=== PATIENT | male | born 1945 ===

== ENCOUNTER 2017-02-14 08:15 | Inpatient (IN) | payer MEDICARE, OTHER ==
[2017-02-14] MEDS ORDERED: Sodium Chloride 0.9% 1,000 ML IV STA (09:19)
[2017-02-14] MEDS ORDERED: Sodium Chloride 0.9% 1,000 ML ONE (09:55)
[2017-02-14 09:57] LABS: BASO % 0.3 % (0.0-2.0); HEMATOCRIT 42.3 % (35.0-51.0); LYMPH # 0.5 K/uL (1.0-4.3); LYMPH % 4.7 % (20.0-40.0); MEAN CELL VOLUME 90.5 fL (80.0-94.0); MEAN CORPUSCULAR HEMOGLOBIN 30.9 pg (27.0-31.0); MEAN CORPUSCULAR HGB CONC 34.2 g/dL (33.0-37.0); MEAN PLATELET VOLUME 9.9 fL (7.2-11.7); MONO # 0.4 K/uL (0.0-0.8); MONO % 3.4 % (0.0-10.0); PLATELET COUNT 131 K/uL (130-400); RED CELL DISTRIBUTION WIDTH 13.7 % (11.5-14.5); WHITE BLOOD COUNT 11.3 K/uL (4.8-10.8)
[2017-02-14 09:58] LABS: CHLORIDE 89 mmol/L (98-107); SODIUM 129 mmol/L (132-148)
[2017-02-14 09:59] LABS: POTASSIUM 3.6 mmol/L (3.6-5.2)
--- NOTE | 2017-02-14 09:59 | RAD ---
PROCEDURE: CHEST RADIOGRAPH, 1 VIEW HISTORY: fever COMPARISON: None available. FINDINGS: LUNGS: Prominent confluent opacification in the right upper to mid lung zone concerning for infiltrate. Additional diffuse increased interstitial lung markings which may represent edema and or infiltrate. Correlation with lateral view may be helpful if clinically indicated. PLEURA: As above. CARDIOVASCULAR: Normal. OSSEOUS STRUCTURES: Degenerative changes in the spine and shoulders. VISUALIZED UPPER ABDOMEN: Normal. OTHER FINDINGS: None. IMPRESSION: Prominent confluent opacification in the right upper to mid lung zone concerning for infiltrate. Additional diffuse increased interstitial lung markings which may represent edema and or infiltrate. Correlation with lateral view may be helpful if clinically indicated.
[2017-02-14 10:00] LABS: AMYLASE 88 U/L (30-110); BILIRUBIN,TOTAL 1.1 mg/dL (0.2-1.3); CARBON DIOXIDE 26 mmol/L (22-30); GFR AFRICAN-AMERICAN > 60; INR 1.1
[2017-02-14 10:01] LABS: ALB/GLOB RATIO 1.1 (1.0-2.1); ALKALINE PHOSPHATASE 86 U/L (38-126); ALT/SGPT 67 U/L (21-72); AST/SGOT 131 U/L (17-59); BLOOD UREA NITROGEN 17 mg/dL (9-20); CALCIUM 8.5 mg/dl (8.6-10.4); GLUCOSE,RANDOM 316 mg/dL (75-110); TOTAL PROTEIN 7.4 g/dL (6.3-8.3)
[2017-02-14 10:08] LABS: VENOUS BLOOD GAS BASE EXCESS 2.7 mmol/L (0.0-2.0); VENOUS BLOOD GAS PCO2 44 mmHg (40-60); VENOUS BLOOD PH 7.41 (7.32-7.43)
[2017-02-14] MEDS ORDERED: Azithromycin 500 MG in Sodium Chloride 0.9% 250 ML IVPB STA (10:17)
[2017-02-14] MEDS ORDERED: cefTRIAXone IV 1 gm in Dextros 50 ML IVPB STA (10:17)
[2017-02-14 10:19] LABS: TOTAL CELLS COUNTED 100
[2017-02-14 10:20] LABS: NEUTROPHIL 75 % (50-75)
[2017-02-14] MEDS ORDERED: cefTRIAXone IV 1 gm in Dextros 50 ML IVPB ONE (10:35)
--- NOTE | 2017-02-14 10:35 | C.PDOC ---
History Of Present Illness 72 year old male with a history of DM, presents to the ED accompanied by his son who states the patient has had generalized weakness, upper back pain, chest soreness, productive cough, SOB and subjective fever for the past 4 days. 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 Abdominal pain, nausea, vomiting, diarrhea or any other complaints at this time. Time Seen by Provider: 02/14/17 08:57 Chief Complaint (Nursing): Flu-like Symptoms History Per: Patient, Family (Son) History/Exam Limitations: no limitations Onset/Duration Of Symptoms: Days Current Symptoms Are (Timing): Still Present Associated Symptoms: Fever. denies: Cough, Vomiting, Diarrhea Ear Symptoms: Bilateral: None Severity: Mild Past Medical History Reviewed: Historical Data, Nursing Documentation, Vital Signs Vital Signs: Last Vital Signs Temp 99 F 02/14/17 13:58 Pulse 79 02/14/17 13:58 Resp 20 02/14/17 13:58 BP 99/54 L 02/14/17 13:58 Pulse Ox 95 02/14/17 13:58 - Medical History PMH: Fractures (LEFT ANKLE WITH FIXATION) Family History: States: Unknown Family Hx - Social History Hx Alcohol Use: No (Former) Hx Substance Use: No (Denied) - Immunization History Hx Tetanus Toxoid Vaccination: No Hx Influenza Vaccination: Yes ("December 2016") Hx Pneumococcal Vaccination: No ("Unsure'') Review Of Systems Except As Marked, All Systems Reviewed And Found Negative. Constitutional: Positive for: Fever, Weakness, Other (+Decreased appetite). Negative for: Chills Cardiovascular: Positive for: Chest Pain. Negative for: Palpitations Respiratory: Negative for: Cough, Shortness of Breath Gastrointestinal: Negative for: Nausea, Vomiting, Abdominal Pain Genitourinary: Negative for: Incontinence Musculoskeletal: Positive for: Back Pain Neurological: Negative for: Weakness, Numbness Physical Exam - Physical Exam Appears: Non-toxic, No Acute Distress Skin: Normal Color, Warm, Dry, No Rash Head: Atraumatic, Normacephalic Eye(s): bilateral: Normal Inspection Oral Mucosa: Dry Neck: Supple Chest: Symmetrical, No Deformity Cardiovascular: Rhythm Regular, No Murmur Respiratory: No Accessory Muscle Use, Rales (+Rales to bilateral bases), No Rhonchi, No Wheezing Gastrointestinal/Abdominal: Soft, No Tenderness, No Distention, No Guarding, No Rebound Extremity: Normal ROM, No Pedal Edema, No Deformity Neurological/Psych: Oriented x3, Normal Speech, Normal Cognition ED Course And Treatment - Laboratory Results Result Diagrams: 02/14/17 09:44 02/14/17 09:44 ECG: Interpreted By Me, Viewed By Me ECG Rhythm: Sinus Rhythm Rate From EC O2 Sat by Pulse Oximetry: 95 (Room air) Pulse Ox Interpretation: Normal - Radiology CXR: Viewed By Me, Read By Radiologist CXR Interpretation: Yes: Other (Prominent confluent opacification in the right upper to mid lung zone concerning for infiltrate. Additional diffuse increased interstitial lung markings which may represent edema and or infiltrate. Correlation with lateral view may be helpful if clinically indicated.) - CT Scan/US CT Chest w/o contrast Other Rad Studies (CT/US): Read By Radiologist, Radiology Report Reviewed CT/US Interpretation: Accession No. : [id number]. Patient Name / ID : ROD KAYE / [id number]. Exam Date : 02/14/2017 11:52:42 ( Approved ). Study Comment : Sex / Age : M / [id number]. Creator : Stacy Roper MD. Dictator : Stacy Roper MD. Net Programmer : Warehouse Shipping Supervisor : Stacy Roper MD. Approver2 : Report Date : 02/14/2017 12:19:12. My Comment : . CT chest without IV contrast. Indication: right upper lobe infiltrate, patchy infiltrates. Technique: Contiguous axial images were obtained through the chest without intravenous contrast enhancement. Sagittal and coronal reconstructions were generated and reviewed. This CT exam was performed using 1 or more of the falling dose reduction techniques: Automated exposure control, adjustment of the MAA and/or kV according to patient size, and/or use of iterative reconstruction technique. . Radiation dose (DLP): 844.09 MGy-cm. Comparison: Chest x-ray performed 02/14/17. Findings: Visualized portions of the inferior thyroid gland appear unremarkable. The unenhanced mediastinal and hilar vascular structures appear grossly unremarkable. The heart appears within normal limits of size. Coronary artery calcifications. Prominent prevascular and mediastinal adenopathy measuring up to 12 mm in short axis ( right pretracheal lymph node); lack of IV contrast limits evaluation for adenopathy, in particular hilar adenopathy. Right upper lobe patchy consolidation compatible with pneumonia. No pleural effusion. No pneumothorax. Limited visualization of the noncontrast upper abdomen appears grossly unremarkable. . Degenerative changes of the spine. Impression: Extensive right upper lobe patchy consolidation compatible with pneumonia. Recommend follow-up upon completion of treatment for acute symptoms in order to ensure complete resolution. Prominent prevascular and mediastinal adenopathy measuring up to 12 mm in short axis (right pretracheal lymph node); lack of IV contrast limits evaluation for adenopathy, in particular hilar adenopathy. Progress Note: CT Chest w/o contrast, EKG, CXR, Blood work, Urinalysis, and Flu swab ordered and reviewed. Patient treated with Zithromax, Rocephine, and IV fluids. Case discussed with Dr. Fernandes who agreed with plan and admission. Disposition - Disposition Disposition: HOSPITALIZED Disposition Time: 10:35 Condition: FAIR - Clinical Impression Clinical Impression: Pneumonia, Diabetes mellitus - PA / TRAVEL DIRECTOR / Resident Statement MD/DO has reviewed & agrees with the documentation as recorded. - Scribe Statement The provider has reviewed the documentation as recorded by the Scribe Светлана Ko. All medical record entries made by the [place]ibkurt were at my direction and personally dictated by me. I have reviewed the chart and agree that the record accurately reflects my personal performance of the history, physical exam, medical decision making, and the department course for this patient. I have also personally directed, reviewed, and agree with the discharge instructions and disposition. Decision To Admit - Pt Status Changed To: Hospital Disposition Of: Inpatient - Admit Certification Admit to Inpatient:: After my assessment, the patient will require hospitalization for at least two midnights. This is because of the severity of symptoms shown, intensity of services needed, and/or the medical risk in this patient being treated as an outpatient. - InPatient: Physician Admission Certification: I certify that this patient requires 2 or more midnights of care for the following reason:: Patient with dayanna fever and RUL pneumonia will need more than 2 days of IV antibiotics. - . Bed Request Type: Regular Patient Diagnosis: Pneumonia, Diabetes mellitus
[2017-02-14] MEDS ORDERED: Azithromycin 500mg/250ML NS 500 MG/250 ML BAG IVPB ONE (11:07)
[2017-02-14 12:10] LABS: RBC URINE 5 /hpf (0-3); URINE BACTERIA OCC (<OCC); URINE BILIRUBIN NEGATIVE (NEGATIVE); URINE BLOOD 3+ (NEGATIVE); URINE COLOR Yellow (YELLOW); URINE GLUCOSE (UA) 3+ mg/dL (Normal); URINE KETONE TRACE mg/dL (NEGATIVE); URINE LEUKOCYTE ESTERASE NEG Leu/uL (Negative); URINE PROTEIN 2+ mg/dL (NEGATIVE); WBC URINE 9 /hpf (0-5)
--- NOTE | 2017-02-14 12:20 | CT ---
CT chest without IV contrast Indication: right upper lobe infiltrate, patchy infiltrates Technique: Contiguous axial images were obtained through the chest without intravenous contrast enhancement. Sagittal and coronal reconstructions were generated and reviewed. This CT exam was performed using 1 or more of the falling dose reduction techniques: Automated exposure control, adjustment of the MAA and/or kV according to patient size, and/or use of iterative reconstruction technique. Radiation dose (DLP): 844.09 MGy-cm. Comparison: Chest x-ray performed 02/14/17 Findings: Visualized portions of the inferior thyroid gland appear unremarkable. The unenhanced mediastinal and hilar vascular structures appear grossly unremarkable. The heart appears within normal limits of size. Coronary artery calcifications. Prominent prevascular and mediastinal adenopathy measuring up to 12 mm in short axis (right pretracheal lymph node); lack of IV contrast limits evaluation for adenopathy, in particular hilar adenopathy. Right upper lobe patchy consolidation compatible with pneumonia. No pleural effusion. No pneumothorax. Limited visualization of the noncontrast upper abdomen appears grossly unremarkable. Degenerative changes of the spine. Impression: Extensive right upper lobe patchy consolidation compatible with pneumonia. Recommend follow-up upon completion of treatment for acute symptoms in order to ensure complete resolution. Prominent prevascular and mediastinal adenopathy measuring up to 12 mm in short axis (right pretracheal lymph node); lack of IV contrast limits evaluation for adenopathy, in particular hilar adenopathy.
[2017-02-14] MEDS: Sodium Chloride 0.9% 1,000 ML IV SCH (13:20)
[2017-02-14] MEDS: (Novolin R) Insulin Human Regular 100 units/ml vial SC SCH ×2 (16:30→21:49)
--- NOTE | 2017-02-14 17:49 | CP.PCM.HP ---
History of Present Illness - History of Present Illness History of Present Illness: pt came in to er cough weeke fever chils and no apetite Present on Admission - Present on Admission Any Indicators Present on Admission: Yes Review of Systems - Review of Systems Systems not reviewed;Unavailable: Acuity of Condition - Constitutional Constitutional: Anorexia, Chills, Fatigue, Fever - EENT Eyes: As Per HPI Ears: As Per HPI Nose/Mouth/Throat: As Per HPI - Cardiovascular Cardiovascular: Dyspnea on Exertion - Respiratory Respiratory: Cough, Dyspnea on Exertion - Gastrointestinal Gastrointestinal: As Per HPI - Genitourinary Genitourinary: Urinary Frequency - Reproductive: Male Reproductive:Male: As Per HPI - Musculoskeletal Musculoskeletal: As Per HPI - Integumentary Integumentary: As Per HPI - Neurological Neurological: As Per HPI - Psychiatric Psychiatric: As Per HPI - Endocrine Endocrine: Polydipsia, Polyuria - Hematologic/Lymphatic Hematologic: As Per HPI Past Patient History - Past Medical History & Family History Past Medical History?: Yes - Past Social History Smoking Status: Former Smoker - ENDOCRINE/METABOLIC Hx Endocrine Disorders: Yes Hx Diabetes Mellitus Type 2: Yes - MUSCULOSKELETAL/RHEUMATOLOGICAL Hx Fractures: Yes (LEFT ANKLE WITH FIXATION) - PSYCHIATRIC Hx Substance Use: No (Denied) - SURGICAL HISTORY Hx Surgeries: Yes Hx Orthopedic Surgery: Yes - ANESTHESIA Hx Anesthesia: Yes Hx Anesthesia Reactions: No Meds Allergies/Adverse Reactions: Allergies Allergy/AdvReac Type Severity Reaction Status Date / Time No Known Allergies Allergy Unverified 02/14/17 08:26 Physical Exam - Constitutional Appears: In Acute Distress - Head Exam Head Exam: ATRAUMATIC - Eye Exam Eye Exam: Normal appearance Pupil Exam: NORMAL ACCOMODATION - ENT Exam ENT Exam: Mucous Membranes Dry - Neck Exam Neck exam: Positive for: Full Rom - Respiratory Exam Respiratory Exam: Accessory Muscle Use, Decreased Breath Sounds, Rales - Cardiovascular Exam Cardiovascular Exam: Tachycardia - GI/Abdominal Exam GI & Abdominal Exam: Normal Bowel Sounds - Rectal Exam Rectal Exam: NORMAL INSPECTION - Extremities Exam Extremities exam: Positive for: normal inspection - Back Exam Back exam: NORMAL INSPECTION Results - Vital Signs Recent Vital Signs: Last Vital Signs Temp 101.5 F H 02/14/17 15:30 Pulse 98 H 02/14/17 15:30 Resp 20 02/14/17 15:30 BP 126/72 02/14/17 15:30 Pulse Ox 95 02/14/17 16:14 - Labs Result Diagrams: 02/14/17 09:44 02/14/17 09:44 Labs: Laboratory Results - last 24 hr 02/14/17 02/14/17 11:46 17:02 POC Glucose (mg/dL) 242 H Urine Color Yellow Urine Clarity Hazy Urine pH 5.0 Ur Specific [place] 1.022 Urine Protein 2+ H Urine Glucose (UA) 3+ H Urine Ketones Trace Urine Blood 3+ H Urine Nitrate Negative Urine Bilirubin Negative Urine Urobilinogen 4.0 Ur Leukocyte Esterase Neg Urine WBC (Auto) 9 H Urine RBC (Auto) 5 H Ur Squamous Epith Cells < 1 Amorphous Sediment Occ H Urine Bacteria Occ H Assessment & Plan - Assessment and Plan (Free Text) Assessment: ac pnumonia ac uti dm Plan: as per orders - Date & Time Date: 02/14/17 Time: 17:51
[2017-02-15] MEDS: Sodium Chloride 0.9% 1,000 ML IV SCH ×2 (00:59→16:56)
[2017-02-15] MEDS: (Novolin R) Insulin Human Regular 100 units/ml vial SC SCH ×4 (08:25→23:52)
[2017-02-15 08:33] LABS: BASO % 0.1 % (0.0-2.0); HEMATOCRIT 35.6 % (35.0-51.0); LYMPH # 0.4 K/uL (1.0-4.3); LYMPH % 5.2 % (20.0-40.0); MEAN CELL VOLUME 90.8 fL (80.0-94.0); MEAN CORPUSCULAR HEMOGLOBIN 30.7 pg (27.0-31.0); MEAN CORPUSCULAR HGB CONC 33.8 g/dL (33.0-37.0); MEAN PLATELET VOLUME 10.3 fL (7.2-11.7); MONO # 0.2 K/uL (0.0-0.8); MONO % 2.7 % (0.0-10.0); PLATELET COUNT 132 K/uL (130-400); RED CELL DISTRIBUTION WIDTH 13.6 % (11.5-14.5); WHITE BLOOD COUNT 8.4 K/uL (4.8-10.8)
[2017-02-15 08:39] LABS: CHLORIDE 95 mmol/L (98-107); POTASSIUM 3.3 mmol/L (3.6-5.2); SODIUM 131 mmol/L (132-148)
[2017-02-15 08:41] LABS: ALB/GLOB RATIO 0.9 (1.0-2.1); AST/SGOT 89 U/L (17-59); BILIRUBIN,TOTAL 0.9 mg/dL (0.2-1.3); CARBON DIOXIDE 25 mmol/L (22-30); CHOLESTEROL 100 mg/dL (0-199); GFR AFRICAN-AMERICAN > 60; TOTAL PROTEIN 6.1 g/dL (6.3-8.3)
[2017-02-15 08:42] LABS: ALKALINE PHOSPHATASE 67 U/L (38-126); ALT/SGPT 61 U/L (21-72); BLOOD UREA NITROGEN 21 mg/dL (9-20); CALCIUM 7.7 mg/dl (8.6-10.4); GLUCOSE,RANDOM 173 mg/dL (75-110)
[2017-02-15 09:25] LABS: NEUTROPHIL 69 % (50-75); TOTAL CELLS COUNTED 100
--- NOTE | 2017-02-15 09:40 | CP.PCM.PN ---
Subjective - Date & Time of Evaluation Date of Evaluation: 02/15/17 Time of Evaluation: 09:38 - Subjective Subjective: feels beter still has fever c/o bloody urin Objective - Vital Signs/Intake and Output Vital Signs (last 24 hours): Temp Pulse Resp BP Pulse Ox 99 F 88 20 107/60 96 02/15/17 09:05 02/15/17 08:00 02/15/17 08:00 02/15/17 08:00 02/15/17 08:00 Intake and Output: 02/15/17 02/15/17 06:59 18:59 Intake Total 2940 Output Total 300 Balance 2640 - Medications Medications: Current Medications Acetaminophen (Tylenol 325mg Tab) 650 mg PO Q6H PRN PRN Reason: Fever >100.4 F Last Admin: 02/15/17 06:48 Dose: 650 mg Heparin Sodium (Porcine) (Heparin) 5,000 units SC Q12 [facility] Last Admin: 02/15/17 09:17 Dose: 5,000 units Sodium Chloride (Sodium Chloride 0.9%) 1,000 mls @ 80 mls/hr IV .[id number] [facility] Last Admin: 02/15/17 00:59 Dose: 80 mls/hr Azithromycin 500 mg/ Sodium (Chloride) 250 mls @ 166.667 mls/hr IVPB DAILY [facility] Last Admin: 02/15/17 09:19 Dose: 166.667 mls/hr Ceftriaxone Sodium (Rocephin Iv 1 Gm Duplex) 50 mls @ 100 mls/hr IVPB Q24H [facility] Insulin Human Regular (Novolin R) 0 unit SC ACHS DIALLO PRN Reason: Protocol Last Admin: 02/15/17 08:25 Dose: 3 unit Metformin HCl (Glucophage) 1,000 mg PO BID [facility] Last Admin: 02/15/17 09:17 Dose: 1,000 mg Pneumococcal Polyvalent Vaccine (Pneumovax 23 Vaccine) 0.5 ml IM .ONCE ONE Stop: 02/16/17 10:01 - Labs Labs: 02/15/17 08:17 02/15/17 08:17 PT 12.9 SECONDS (9.7-12.2) H 02/14/17 09:44 INR 1.1 02/14/17 09:44 APTT 44 SECONDS (21-34) H 02/14/17 09:44 - Constitutional Appears: Non-toxic - Head Exam Head Exam: NORMAL INSPECTION - Eye Exam Eye Exam: Normal appearance - ENT Exam ENT Exam: Normal Exam - Neck Exam Neck Exam: Full ROM - Respiratory Exam Respiratory Exam: Decreased Breath Sounds - Cardiovascular Exam Cardiovascular Exam: REGULAR RHYTHM - GI/Abdominal Exam GI & Abdominal Exam: Normal Bowel Sounds - Rectal Exam Rectal Exam: NORMAL INSPECTION - Exam External exam: NORMAL EXTERNAL EXAM - Extremities Exam Extremities Exam: Normal Inspection - Back Exam Back Exam: NORMAL INSPECTION - Neurological Exam Neurological Exam: Alert, Oriented x3 - Psychiatric Exam Psychiatric exam: Normal Affect - Skin Skin Exam: Intact Assessment and Plan - Assessment and Plan (Free Text) Assessment: ac pnumonia ac uti dm constipation hypokaleamia hypocalceamia Plan: as per orders
[2017-02-15] MEDS ORDERED: Azithromycin 500 MG in Sodium Chloride 0.9% 250 ML IVPB SCH (10:00)
[2017-02-15 11:04] LABS: FREE T4 1.15 ng/dL (0.78-2.19)
[2017-02-15 11:18] LABS: THYROID STIMULATING HORMONE 0.55 mIU/L (0.46-4.68)
[2017-02-15] MEDS: Calcium-Vit D 250 mg-125 Units Tab UD PO SCH (11:24)
[2017-02-15] MEDS: Potassium Chloride 20 mEq ER Tab PO SCH (11:24)
--- NOTE | 2017-02-15 11:28 | CARD ---
APPROVED REPORT EKG Measurement Heart [id number] MD [id number] [id number] <Conclusion> Normal sinus rhythm Normal ECG
[2017-02-15] MEDS ORDERED: cefTRIAXone IV 1 gm in Dextros 50 ML IVPB SCH (11:30)
--- NOTE | 2017-02-15 19:04 | CP.PCM.CON ---
History of Present Illness - History of Present Illness History of Present Illness: 72 year old male with a history of DM, presents to the ED accompanied by his son who states the patient has had generalized weakness, upper back pain, chest soreness, productive cough, SOB and subjective fever for the past 4 days. 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 Abdominal pain, nausea, vomiting, diarrhea or any other complaints at this time. poor historian bands HI PMH denied +DM appears depresseed IV rx ordered for pneumonia pending cultures Review of Systems - Constitutional Constitutional: Chills, Fatigue, Fever - EENT Eyes: absent: As Per HPI, Blind Spots, Blurred Vision, Change in Vision, Decreased Night Vision, Diplopia, Discharge, Dry Eye, Exophthalmos, Floaters, Irritation, Itchy Eyes, Loss of Peripheral Vision, Pain, Photophobia, Requires Corrective Lenses, Sees Flashes, Spots in Vision, Tunnel Vision, Other Visual Disturbances, Loss of Vision, Other Ears: absent: As Per HPI, Decreased Hearing, Ear Discharge, Ear Pain, Tinnitus, Abnormal Hearing, Disequilibrium, Dizziness, Other Nose/Mouth/Throat: absent: As Per HPI, Epistaxis, Nasal Congestion, Nasal Discharge, Nasal Obstruction, Nasal Trauma, Nose Pain, Post Nasal Drip, Sinus Pain, Sinus Pressure, Bleeding Gums, Change in Voice, Dental Pain, Dry Mouth, Dysphagia, Halitosis, Hoarsness, Lip Swelling, Mouth Lesions, Mouth Pain, Odynophagia, Sore Throat, Throat Swelling, Tongue Swelling, Facial Pain, Neck Pain, Neck Mass, Other - Cardiovascular Cardiovascular: absent: As Per HPI, Acrocyanosis, Chest Pain, Chest Pain at Rest , Chest Pain with Activity, Claudication, Diaphoresis, Dyspnea, Dyspnea on Exertion, Edema, Irregular Heart Rhythm, Pain Radiating to Arm/Neck/Jaw, Leg Edema, Leg Ulcers, Lightheadedness, Orthopnea, Palpitations, Paroxysmal Nocturnal Dyspnea, Pedal Edema, Radiating Pain, Rapid Heart Rate, Slow Heart Rate, Syncope, Other - Respiratory Respiratory: As Per HPI, Cough. absent: Hemoptysis - Gastrointestinal Gastrointestinal: absent: As Per HPI, Abdominal Pain, Belching, Bloating, Change in Bowel Habits, Change in Stool Character, Coffee Ground Emesis, Constipation, Cramping, Diarrhea, Dyspepsia, Dysphagia, Early Satiety, Excessive Flatus, Fecal Incontinence, Heartburn, Hematemesis, Hematochezia, Loose Stools, Melena, Nausea, Odynophagia, Temesmus, Vomiting, Other - Genitourinary Genitourinary: absent: As Per HPI, Change in Urinary Stream, Difficulty Urinating, Dysuria, Flank Pain, Hematuria, Pyuria, Nocturia, Urinary Incontinence, Urinary Frequency, Urinary Hesitance, Urinary Urgency, Voiding Freq/Small Amts, Freq UTI, Hx Renal/Bladder Calculi, Hx /Renal Surgery, Bladder Distension, Other - Musculoskeletal Musculoskeletal: absent: As Per HPI, Abnormal Gait, Arthralgias, Atrophy, Back Pain, Deformity, Joint Swelling, Limited Range of Motion, Loss of Height, Muscle Cramps, Muscle Weakness, Myalgias, Neck Pain, Numbness, Radiating Pain into Limb, Stiffness, Tingling, Other - Integumentary Integumentary: absent: As Per HPI, Acne, Alopecia, Bleeding Lesions, Change in Hair, Change in Nails, Change in Pigmentation, Changing Lesions, Dry Skin, Erythema, Furuncle, Hirsutism, Lesions, New Lesions, Non-Healing Lesions, Photosensitivity, Pruritus, Rash, Skin Pain, Skin Ulcer, Sores, Striae, Swelling , Unusual Bruising, Wounds, Jaundice, Other - Neurological Neurological: absent: As Per HPI, Abnormal Gait, Abnormal Hearing, Abnormal Movements, Abnormal Speech, Behavioral Changes, Burning Sensations, Confusion, Convulsions, Disequilibrium, Dizziness, Numbness, Focal Weakness, Frequent Falls , Headaches, Lack of Coordination, Loss of Vision, Memory Loss, Paresthesias, Radicular Pain, Restless Legs, Sensory Deficit, Syncope, Tingling, Tremor, Vertigo, Weakness, Other Visual Disturbances, Other - Psychiatric Psychiatric: absent: As Per HPI, Abnormal Sleep Pattern, Anhedonia, Anxiety, Auditory Hallucinations, Behavioral Changes, Change in Appetite, Change in Libido, Confusion, Depression, Difficulty Concentrating, Hallucinations, Homicidal Ideation, Hopelessness, Irritability, Memory Loss, Mood Swings, Panic Attacks, Paranoia, Suicidal Ideation, Visual Hallucinations, Tactile Hallucinations, Other - Endocrine Endocrine: absent: As Per HPI, Change in Body Appearance, Change in Libido, Cold Intolorance, Deepening of Voice, Excessive Sweating, Fatigue, Flushing, Heat Intolorance, Increase in Ring/Shoe/Hat Size, Palpitations, Polydipsia, Polyphagia, Polyuria, Other - Hematologic/Lymphatic Hematologic: absent: As Per HPI, Easy Bleeding, Easy Bruising, Lymphadenopathy, Other Past Patient History - Past Medical History & Family History Past Medical History?: Yes - Past Social History Smoking Status: Former Smoker - ENDOCRINE/METABOLIC Hx Diabetes Mellitus Type 2: Yes - MUSCULOSKELETAL/RHEUMATOLOGICAL Hx Fractures: Yes (LEFT ANKLE WITH FIXATION) - PSYCHIATRIC Hx Substance Use: No (Denied) - SURGICAL HISTORY Hx Surgeries: Yes Hx Orthopedic Surgery: Yes - ANESTHESIA Hx Anesthesia: Yes Hx Anesthesia Reactions: No Meds Allergies/Adverse Reactions: Allergies Allergy/AdvReac Type Severity Reaction Status Date / Time No Known Allergies Allergy Unverified 02/14/17 08:26 - Medications Medications: Current Medications Acetaminophen (Tylenol 325mg Tab) 650 mg PO Q6H PRN PRN Reason: Fever >100.4 F Last Admin: 02/15/17 16:52 Dose: 650 mg Calcium/Vitamin D (Oscal-D 250 Mg-125 Units Tab) 1 tab PO DAILY [facility] Last Admin: 02/15/17 11:24 Dose: 1 tab Heparin Sodium (Porcine) (Heparin) 5,000 units SC Q12 [facility] Last Admin: 02/15/17 09:17 Dose: 5,000 units Sodium Chloride (Sodium Chloride 0.9%) 1,000 mls @ 80 mls/hr IV .[id number] [facility] Last Admin: 02/15/17 16:56 Dose: 80 mls/hr Azithromycin 500 mg/ Sodium (Chloride) 250 mls @ 166.667 mls/hr IVPB DAILY [facility] Last Admin: 02/15/17 09:19 Dose: 166.667 mls/hr Ceftriaxone Sodium (Rocephin Iv 1 Gm Duplex) 50 mls @ 100 mls/hr IVPB Q24H [facility] Last Admin: 02/15/17 11:26 Dose: 100 mls/hr Insulin Human Regular (Novolin R) 0 unit SC ACHS [facility] PRN Reason: Protocol Last Admin: 02/15/17 16:55 Dose: Not Given Metformin HCl (Glucophage) 1,000 mg PO BID [facility] Last Admin: 02/15/17 17:00 Dose: 1,000 mg Pneumococcal Polyvalent Vaccine (Pneumovax 23 Vaccine) 0.5 ml IM .ONCE ONE Stop: 02/16/17 10:01 Potassium Chloride (K-Dur 20 Meq Er Tab) 20 meq PO DAILY [facility] Last Admin: 02/15/17 11:24 Dose: 20 meq Physical Exam - Constitutional Appears: Non-toxic, Cachectic, Chronically Ill - Head Exam Head Exam: ATRAUMATIC, NORMAL INSPECTION, NORMOCEPHALIC - Eye Exam Eye Exam: EOMI, PERRL. absent: Scleral icterus - ENT Exam ENT Exam: Mucous Membranes Dry, Normal External Ear Exam - Neck Exam Neck exam: Negative for: Lymphadenopathy, Thyromegaly - Respiratory Exam Respiratory Exam: Decreased Breath Sounds, Rhonchi - Cardiovascular Exam Cardiovascular Exam: REGULAR RHYTHM, +S1, +S2 - GI/Abdominal Exam GI & Abdominal Exam: Diminished Bowel Sounds, Soft. absent: Tenderness - Rectal Exam Rectal Exam: Deferred - Exam Exam: NORMAL INSPECTION - Extremities Exam Extremities exam: Positive for: pedal pulses present. Negative for: calf tenderness, pedal edema, tenderness - Back Exam Back exam: absent: CVA tenderness (L), CVA tenderness (R), paraspinal tenderness - Neurological Exam Neurological exam: Alert, CN II-XII Intact, Oriented x3, Reflexes Normal - Psychiatric Exam Psychiatric exam: Depressed - Skin Skin Exam: Dry, Intact Results - Vital Signs Recent Vital Signs: Last Vital Signs Temp 102.1 F H 02/15/17 16:52 Pulse 88 02/15/17 08:00 Resp 20 02/15/17 08:00 BP 107/60 02/15/17 08:00 Pulse Ox 96 02/15/17 08:00 - Labs Result Diagrams: 02/15/17 08:17 02/15/17 08:17 Labs: Laboratory Results - last 24 hr 02/14/17 02/15/17 02/15/17 21:16 07:19 08:17 WBC 8.4 RBC 3.93 L Hgb 12.0 D Hct 35.6 MCV 90.8 MCH 30.7 MCHC 33.8 RDW 13.6 Plt Count 132 MPV 10.3 Neut % (Auto) 92.0 H Lymph % (Auto) 5.2 L [place] % (Auto) 2.7 Eos % (Auto) 0.0 Baso % (Auto) 0.1 Neut # 7.7 H Lymph # 0.4 L [place] # 0.2 Eos # 0.0 Baso # 0.0 Neutrophils % (Manual) 69 Band Neutrophils % 26 H* Lymphocytes % (Manual) 4 L Monocytes % (Manual) 1 Platelet Estimate Normal RBC Morphology Normal Sodium Potassium Chloride Carbon Dioxide Anion Gap BUN Creatinine Est GFR ( Amer) Est GFR (Non-Af Amer) POC Glucose (mg/dL) 231 H 204 H Random Glucose Hemoglobin A1c Calcium Total Bilirubin AST ALT Alkaline Phosphatase Total Protein Albumin Globulin Albumin/Globulin Ratio Triglycerides Cholesterol LDL Cholesterol Direct HDL Cholesterol Free T4 TSH 3rd Generation 02/15/17 02/15/17 02/15/17 08:17 08:17 08:17 WBC RBC Hgb Hct MCV MCH MCHC RDW Plt Count MPV Neut % (Auto) Lymph % (Auto) [place] % (Auto) Eos % (Auto) Baso % (Auto) Neut # Lymph # [place] # Eos # Baso # Neutrophils % (Manual) Band Neutrophils % Lymphocytes % (Manual) Monocytes % (Manual) Platelet Estimate RBC Morphology Sodium 131 L Potassium 3.3 L Chloride 95 L Carbon Dioxide 25 Anion Gap 14 BUN 21 H Creatinine 0.9 Est GFR ( Amer) > 60 Est GFR (Non-Af Amer) > 60 POC Glucose (mg/dL) Random Glucose 173 H Hemoglobin A1c 6.5 Calcium 7.7 L Total Bilirubin 0.9 AST 89 H D ALT 61 Alkaline Phosphatase 67 Total Protein 6.1 L Albumin 2.8 L D Globulin 3.3 Albumin/Globulin Ratio 0.9 L Triglycerides 175 H Cholesterol 100 LDL Cholesterol Direct < 30 HDL Cholesterol 19 L Free T4 1.15 TSH 3rd Generation 0.55 02/15/17 02/15/17 11:29 16:48 WBC RBC Hgb Hct MCV MCH MCHC RDW Plt Count MPV Neut % (Auto) Lymph % (Auto) [place] % (Auto) Eos % (Auto) Baso % (Auto) Neut # Lymph # [place] # Eos # Baso # Neutrophils % (Manual) Band Neutrophils % Lymphocytes % (Manual) Monocytes % (Manual) Platelet Estimate RBC Morphology Sodium Potassium Chloride Carbon Dioxide Anion Gap BUN Creatinine Est GFR ( Amer) Est GFR (Non-Af Amer) POC Glucose (mg/dL) 204 H 128 H Random Glucose Hemoglobin A1c Calcium Total Bilirubin AST ALT Alkaline Phosphatase Total Protein Albumin Globulin Albumin/Globulin Ratio Triglycerides Cholesterol LDL Cholesterol Direct HDL Cholesterol Free T4 TSH 3rd Generation Assessment & Plan (1) Diabetes mellitus Status: Acute (2) Pneumonia Status: Acute - Assessment and Plan (Free Text) Assessment: await cultures iv rx ordered
[2017-02-15] MEDS: Cefepime IV 2 gm in Dextrose 2 GM/100 ML BAG IVPB SCH (21:38)
[2017-02-15] MEDS: Moxifloxacin IV 400mg/250ml NS 400 MG/250 ML BAG IVPB SCH (23:00)
[2017-02-15 23:58] VITALS: RESP 20
[2017-02-16] MEDS: Sodium Chloride 0.9% 1,000 ML IV SCH ×2 (02:15→15:12)
[2017-02-16] MEDS: (Novolin R) Insulin Human Regular 100 units/ml vial SC SCH ×4 (07:30→21:39)
[2017-02-16 07:41] LABS: BASO % 0.3 % (0.0-2.0); EOS % 0.1 % (0.0-4.0); HEMATOCRIT 34.5 % (35.0-51.0); LYMPH # 0.7 K/uL (1.0-4.3); LYMPH % 8.4 % (20.0-40.0); MEAN CELL VOLUME 91.8 fL (80.0-94.0); MEAN CORPUSCULAR HEMOGLOBIN 30.7 pg (27.0-31.0); MEAN CORPUSCULAR HGB CONC 33.4 g/dL (33.0-37.0); MEAN PLATELET VOLUME 10.3 fL (7.2-11.7); MONO # 0.3 K/uL (0.0-0.8); MONO % 3.3 % (0.0-10.0); PLATELET COUNT 127 K/uL (130-400); RED CELL DISTRIBUTION WIDTH 13.8 % (11.5-14.5); WHITE BLOOD COUNT 7.8 K/uL (4.8-10.8)
[2017-02-16 07:53] LABS: CHLORIDE 98 mmol/L (98-107); POTASSIUM 3.6 mmol/L (3.6-5.2); SODIUM 131 mmol/L (132-148)
[2017-02-16 07:56] LABS: BLOOD UREA NITROGEN 21 mg/dL (9-20); CARBON DIOXIDE 22 mmol/L (22-30); GFR AFRICAN-AMERICAN > 60; GLUCOSE,RANDOM 137 mg/dL (75-110)
[2017-02-16 07:57] LABS: CALCIUM 7.5 mg/dl (8.6-10.4)
[2017-02-16] MEDS: Potassium Chloride 20 mEq ER Tab PO SCH (09:44)
[2017-02-16] MEDS: Cefepime IV 2 gm in Dextrose 2 GM/100 ML BAG IVPB SCH ×2 (09:48→20:12)
[2017-02-16] MEDS: Calcium-Vit D 250 mg-125 Units Tab UD PO SCH (09:53)
[2017-02-16] MEDS ORDERED: Pneumococcal 23-Valent Vaccine IM ONE (10:00)
[2017-02-16 11:35] LABS: NEUTROPHIL 87 % (50-75); TOTAL CELLS COUNTED 100
--- NOTE | 2017-02-16 12:28 | CP.PCM.PN ---
Subjective - Date & Time of Evaluation Date of Evaluation: 02/16/17 Time of Evaluation: 12:25 - Subjective Subjective: pain l side ribs vomited his breakfasttodaystill febrile Objective - Vital Signs/Intake and Output Vital Signs (last 24 hours): Temp Pulse Resp BP Pulse Ox 99.0 F 93 H 20 116/57 L 91 L 02/16/17 08:15 02/16/17 08:15 02/16/17 08:15 02/16/17 08:15 02/16/17 08:15 Intake and Output: 02/16/17 02/16/17 06:59 18:59 Intake Total 1530 Output Total 1401 Balance 129 - Medications Medications: Current Medications Acetaminophen (Tylenol 325mg Tab) 650 mg PO Q6H PRN PRN Reason: Fever >100.4 F Last Admin: 02/16/17 00:20 Dose: 650 mg Calcium/Vitamin D (Oscal-D 250 Mg-125 Units Tab) 1 tab PO DAILY [facility] Last Admin: 02/16/17 09:53 Dose: 1 tab Heparin Sodium (Porcine) (Heparin) 5,000 units SC Q12 [facility] Last Admin: 02/16/17 09:43 Dose: 5,000 units Sodium Chloride (Sodium Chloride 0.9%) 1,000 mls @ 80 mls/hr IV .[id number] [facility] Last Admin: 02/16/17 02:15 Dose: Not Given Cefepime HCl (Maxipime Iv 2 Gm Premix) 2 gm in 100 mls @ 200 mls/hr IVPB Q12H [facility] Stop: 02/20/17 21:01 Last Admin: 02/16/17 09:48 Dose: 200 mls/hr Moxifloxacin HCl (Avelox Iv 400mg/250ml Ns) 400 mg in 250 mls @ 167 mls/hr IVPB Q24H [facility] Last Admin: 02/15/17 23:00 Dose: 167 mls/hr Insulin Human Regular (Novolin R) 0 unit SC ACHS [facility] PRN Reason: Protocol Last Admin: 02/16/17 07:30 Dose: 2 unit Metformin HCl (Glucophage) 1,000 mg PO BID [facility] Last Admin: 02/16/17 09:43 Dose: 1,000 mg Potassium Chloride (K-Dur 20 Meq Er Tab) 20 meq PO DAILY [facility] Last Admin: 02/16/17 09:44 Dose: 20 meq - Labs Labs: 02/16/17 07:31 02/16/17 07:31 PT 12.9 SECONDS (9.7-12.2) H 02/14/17 09:44 INR 1.1 02/14/17 09:44 APTT 44 SECONDS (21-34) H 02/14/17 09:44 - Constitutional Appears: In Acute Distress - Head Exam Head Exam: NORMOCEPHALIC - Eye Exam Eye Exam: EOMI Pupil Exam: NORMAL ACCOMODATION - ENT Exam ENT Exam: Mucous Membranes Moist - Neck Exam Neck Exam: Full ROM - Respiratory Exam Respiratory Exam: Decreased Breath Sounds - Cardiovascular Exam Cardiovascular Exam: REGULAR RHYTHM - GI/Abdominal Exam GI & Abdominal Exam: Normal Bowel Sounds - Rectal Exam Rectal Exam: NORMAL INSPECTION - Extremities Exam Extremities Exam: Normal Inspection - Back Exam Back Exam: NORMAL INSPECTION - Neurological Exam Neurological Exam: Oriented x3 - Psychiatric Exam Psychiatric exam: Normal Affect - Skin Skin Exam: Normal Color, Pallor Assessment and Plan - Assessment and Plan (Free Text) Assessment: side rib pain pnumonia uti aneamia vomiting uti Plan: as per orders
--- NOTE | 2017-02-16 14:05 | RAD ---
PROCEDURE: Radiographs of the Chest and Left Ribs. HISTORY: pain l ribs s/p trauma r/o fx COMPARISON: Chest x-ray performed 02/14/17, CT chest without contrast performed 02/14/17 TECHNIQUE: Frontal radiograph of the chest and multiple oblique radiographs of the left ribs were obtained. FINDINGS: LEFT RIBS: No acute displaced fracture identified. LUNGS: Right upper lobe consolidation compatible with worsening lobar pneumonia. PLEURA: No significant pleural effusion. No definite pneumothorax. CARDIOVASCULAR: Heart size appears within normal limits. OTHER FINDINGS: Degenerative changes of the spine. IMPRESSION: Worsening right upper lobe consolidation compatible with lobar pneumonia.
[2017-02-16] MEDS: Moxifloxacin IV 400mg/250ml NS 400 MG/250 ML BAG IVPB SCH (21:32)
[2017-02-17] MEDS: Sodium Chloride 0.9% 1,000 ML IV SCH ×2 (00:45→03:15)
[2017-02-17 02:14] LABS: RBC URINE 1 /hpf (0-3); URINE BACTERIA RARE (<OCC); URINE BILIRUBIN NEGATIVE (NEGATIVE); URINE BLOOD 1+ (NEGATIVE); URINE COLOR Yellow (YELLOW); URINE GLUCOSE (UA) 2+ mg/dL (Normal); URINE KETONE NEGATIVE (NEGATIVE); URINE PROTEIN 1+ mg/dL (NEGATIVE); URINE UROBILINOGEN NORMAL mg/dL (0.2-1.0); WBC URINE 9 /hpf (0-5)
[2017-02-17 02:17] LABS: URINE LEUKOCYTE ESTERASE TRACE Leu/uL (Negative)
[2017-02-17] MEDS: (Novolin R) Insulin Human Regular 100 units/ml vial SC SCH ×4 (08:49→22:00)
[2017-02-17] MEDS: Cefepime IV 2 gm in Dextrose 2 GM/100 ML BAG IVPB SCH ×2 (09:14→20:12)
[2017-02-17] MEDS: Potassium Chloride 20 mEq ER Tab PO SCH (10:09)
[2017-02-17] MEDS: Calcium-Vit D 250 mg-125 Units Tab UD PO SCH (10:14)
--- NOTE | 2017-02-17 16:55 | CP.PCM.PN ---
Subjective - Date & Time of Evaluation Date of Evaluation: 02/17/17 Time of Evaluation: 08:00 - Subjective Subjective: WEAK FEBRILE COUGH+ Objective - Vital Signs/Intake and Output Vital Signs (last 24 hours): Temp Pulse Resp BP Pulse Ox 100.6 F H 82 20 131/65 95 02/17/17 12:25 02/17/17 07:50 02/17/17 07:50 02/17/17 07:50 02/17/17 07:50 Intake and Output: 02/17/17 02/17/17 06:59 18:59 Intake Total 770 790 Output Total 450 Balance 320 790 - Medications Medications: Current Medications Acetaminophen (Tylenol 325mg Tab) 650 mg PO Q6H PRN PRN Reason: Fever >100.4 F Last Admin: 02/17/17 12:17 Dose: 650 mg Calcium/Vitamin D (Oscal-D 250 Mg-125 Units Tab) 1 tab PO DAILY [facility] Last Admin: 02/17/17 10:14 Dose: 1 tab Heparin Sodium (Porcine) (Heparin) 5,000 units SC Q12 [facility] Last Admin: 02/17/17 10:10 Dose: 5,000 units Cefepime HCl (Maxipime Iv 2 Gm Premix) 2 gm in 100 mls @ 200 mls/hr IVPB Q12H [facility] Stop: 02/20/17 21:01 Last Admin: 02/17/17 09:14 Dose: 200 mls/hr Moxifloxacin HCl (Avelox Iv 400mg/250ml Ns) 400 mg in 250 mls @ 167 mls/hr IVPB Q24H [facility] Last Admin: 02/16/17 21:32 Dose: 167 mls/hr Insulin Human Regular (Novolin R) 0 unit SC ACHS [facility] PRN Reason: Protocol Last Admin: 02/17/17 12:17 Dose: 2 unit Metformin HCl (Glucophage) 1,000 mg PO BID [facility] Last Admin: 02/17/17 10:10 Dose: 1,000 mg Ondansetron HCl (Zofran Tab) 4 mg PO ACBD [facility] Last Admin: 02/17/17 16:28 Dose: 4 mg Potassium Chloride (K-Dur 20 Meq Er Tab) 20 meq PO DAILY [facility] Last Admin: 02/17/17 10:09 Dose: 20 meq - Labs Labs: 02/16/17 07:31 02/16/17 07:31 PT 12.9 SECONDS (9.7-12.2) H 02/14/17 09:44 INR 1.1 02/14/17 09:44 APTT 44 SECONDS (21-34) H 02/14/17 09:44 - Constitutional Appears: Non-toxic, Chronically Ill - Head Exam Head Exam: NORMOCEPHALIC - Eye Exam Eye Exam: PERRL. absent: Scleral icterus - ENT Exam ENT Exam: Mucous Membranes Dry, Normal External Ear Exam - Neck Exam Neck Exam: absent: Lymphadenopathy - Respiratory Exam Respiratory Exam: Decreased Breath Sounds, Clear to Ausculation Bilateral Assessment and Plan (1) Diabetes mellitus Status: Acute (2) Pneumonia Status: Acute
[2017-02-17] MEDS: Moxifloxacin IV 400mg/250ml NS 400 MG/250 ML BAG IVPB SCH (21:22)
[2017-02-18] MEDS: Sodium Chloride 0.9% 1,000 ML IV SCH (05:30)
[2017-02-18] MEDS: Cefepime IV 2 gm in Dextrose 2 GM/100 ML BAG IVPB SCH ×2 (08:20→20:11)
[2017-02-18] MEDS: (Novolin R) Insulin Human Regular 100 units/ml vial SC SCH ×4 (11:07→21:50)
[2017-02-18] MEDS: Calcium-Vit D 250 mg-125 Units Tab UD PO SCH (11:09)
[2017-02-18] MEDS: Potassium Chloride 20 mEq ER Tab PO SCH (11:09)
[2017-02-18 12:57] LABS: BASO % 0.3 % (0.0-2.0); EOS # 0.1 K/uL (0.0-0.7); EOS % 1.1 % (0.0-4.0); HEMATOCRIT 31.1 % (35.0-51.0); LYMPH # 0.7 K/uL (1.0-4.3); LYMPH % 8.8 % (20.0-40.0); MEAN CELL VOLUME 92.6 fL (80.0-94.0); MEAN CORPUSCULAR HGB CONC 33.5 g/dL (33.0-37.0); MEAN PLATELET VOLUME 9.9 fL (7.2-11.7); MONO # 0.4 K/uL (0.0-0.8); MONO % 4.9 % (0.0-10.0); PLATELET COUNT 233 K/uL (130-400); RED CELL DISTRIBUTION WIDTH 13.9 % (11.5-14.5); WHITE BLOOD COUNT 8.5 K/uL (4.8-10.8)
[2017-02-18 13:29] LABS: CHLORIDE 95 mmol/L (98-107); POTASSIUM 3.3 mmol/L (3.6-5.2); SODIUM 132 mmol/L (132-148)
[2017-02-18 13:32] LABS: CARBON DIOXIDE 27 mmol/L (22-30); GFR AFRICAN-AMERICAN > 60
[2017-02-18 13:33] LABS: BLOOD UREA NITROGEN 15 mg/dL (9-20); CALCIUM 7.5 mg/dl (8.6-10.4); GLUCOSE,RANDOM 174 mg/dL (75-110)
[2017-02-18 14:28] LABS: EOSINOPHIL 2 % (0-4); TOTAL CELLS COUNTED 100
[2017-02-18 14:29] LABS: NEUTROPHIL 83 % (50-75)
--- NOTE | 2017-02-18 16:46 | CP.PCM.CON ---
History of Present Illness - History of Present Illness History of Present Illness: 72 y/o male with RUL pneumonia. Pulmonary consult called for worsening pneumonia. Pt reports that he is better today. Afebrile for last 24 hrs and hemodynamically stable. Reports cough and phlegm. Review of Systems - Review of Systems All systems: reviewed and no additional remarkable complaints except (as mentioned in HPI) Past Patient History - Past Medical History & Family History Past Medical History?: Yes - Past Social History Smoking Status: Former Smoker - ENDOCRINE/METABOLIC Hx Diabetes Mellitus Type 2: Yes - MUSCULOSKELETAL/RHEUMATOLOGICAL Hx Fractures: Yes (LEFT ANKLE WITH FIXATION) - PSYCHIATRIC Hx Substance Use: No (Denied) - SURGICAL HISTORY Hx Surgeries: Yes Hx Orthopedic Surgery: Yes - ANESTHESIA Hx Anesthesia: Yes Hx Anesthesia Reactions: No Meds Allergies/Adverse Reactions: Allergies Allergy/AdvReac Type Severity Reaction Status Date / Time No Known Allergies Allergy Unverified 02/14/17 08:26 - Medications Medications: Current Medications Acetaminophen (Tylenol 325mg Tab) 650 mg PO Q6H PRN PRN Reason: Fever >100.4 F Last Admin: 02/17/17 12:17 Dose: 650 mg Calcium/Vitamin D (Oscal-D 250 Mg-125 Units Tab) 1 tab PO DAILY [facility] Last Admin: 02/18/17 11:09 Dose: 1 tab Cefepime HCl (Maxipime Iv 2 Gm Premix) 2 gm in 100 mls @ 200 mls/hr IVPB Q12H [facility] Stop: 02/20/17 21:01 Last Admin: 02/18/17 08:20 Dose: 200 mls/hr Moxifloxacin HCl (Avelox Iv 400mg/250ml Ns) 400 mg in 250 mls @ 167 mls/hr IVPB Q24H [facility] Last Admin: 02/17/17 21:22 Dose: 167 mls/hr Insulin Human Regular (Novolin R) 0 unit SC ACHS [facility] PRN Reason: Protocol Last Admin: 02/18/17 13:09 Dose: 3 unit Metformin HCl (Glucophage) 1,000 mg PO BID [facility] Last Admin: 02/18/17 11:09 Dose: 1,000 mg Ondansetron HCl (Zofran Tab) 4 mg PO ACBD [facility] Last Admin: 02/18/17 08:20 Dose: 4 mg Potassium Chloride (K-Dur 20 Meq Er Tab) 20 meq PO DAILY [facility] Last Admin: 02/18/17 11:09 Dose: 20 meq Physical Exam - Head Exam Head Exam: NORMAL INSPECTION - Eye Exam Eye Exam: Normal appearance - ENT Exam ENT Exam: Mucous Membranes Moist - Respiratory Exam Respiratory Exam: Rhonchi - Cardiovascular Exam Cardiovascular Exam: REGULAR RHYTHM, +S1, +S2 - GI/Abdominal Exam GI & Abdominal Exam: Normal Bowel Sounds, Soft - Extremities Exam Extremities exam: Positive for: normal inspection - Neurological Exam Neurological exam: Alert, Oriented x3 Results - Vital Signs Recent Vital Signs: Last Vital Signs Temp 98.9 F 02/18/17 09:11 Pulse 83 02/18/17 09:11 Resp 20 02/18/17 09:11 BP 135/68 02/18/17 09:11 Pulse Ox 91 L 02/18/17 09:11 - Labs Result Diagrams: 02/18/17 12:40 02/18/17 12:40 Labs: Laboratory Results - last 24 hr 02/17/17 02/17/17 02/18/17 16:52 21:34 11:42 WBC RBC Hgb Hct MCV MCH MCHC RDW Plt Count MPV Neut % (Auto) Lymph % (Auto) [place] % (Auto) Eos % (Auto) Baso % (Auto) Neut # Lymph # [place] # Eos # Baso # Neutrophils % (Manual) Band Neutrophils % Lymphocytes % (Manual) Monocytes % (Manual) Eosinophils % (Manual) Platelet Estimate Hypochromasia (manual) Poikilocytosis (manual Anisocytosis (manual) Target Cells Sodium Potassium Chloride Carbon Dioxide Anion Gap BUN Creatinine Est GFR ( Amer) Est GFR (Non-Af Amer) POC Glucose (mg/dL) 108 136 H 208 H Random Glucose Calcium 02/18/17 02/18/17 02/18/17 12:40 12:40 16:40 WBC 8.5 RBC 3.36 L Hgb 10.4 L Hct 31.1 L MCV 92.6 MCH 31.0 MCHC 33.5 RDW 13.9 Plt Count 233 D MPV 9.9 Neut % (Auto) 84.9 H Lymph % (Auto) 8.8 L [place] % (Auto) 4.9 Eos % (Auto) 1.1 Baso % (Auto) 0.3 Neut # 7.2 H Lymph # 0.7 L [place] # 0.4 Eos # 0.1 Baso # 0.0 Neutrophils % (Manual) 83 H Band Neutrophils % 1 Lymphocytes % (Manual) 11 L Monocytes % (Manual) 3 Eosinophils % (Manual) 2 Platelet Estimate Normal Hypochromasia (manual) Slight Poikilocytosis (manual Slight Anisocytosis (manual) Slight Target Cells Slight Sodium 132 Potassium 3.3 L Chloride 95 L Carbon Dioxide 27 Anion Gap 13 BUN 15 Creatinine 0.7 L Est GFR ( Amer) > 60 Est GFR (Non-Af Amer) > 60 POC Glucose (mg/dL) 163 H Random Glucose 174 H Calcium 7.5 L Assessment & Plan - Assessment and Plan (Free Text) Assessment: RUL Pneumonia On Cefepeme and Moxifloxacin Oxygen supplementation Bronchodilators PRN Chest PT CXR from today reviewed
[2017-02-18] MEDS ORDERED: Potassium Chloride 20 mEq ER Tab PO ONE (17:30)
--- NOTE | 2017-02-18 18:21 | CP.PCM.PN ---
Subjective - Date & Time of Evaluation Date of Evaluation: 02/18/17 Time of Evaluation: 18:18 - Subjective Subjective: feels beter toay no vomiting ambulate no chils breathing beter Objective - Vital Signs/Intake and Output Vital Signs (last 24 hours): Temp Pulse Resp BP Pulse Ox 98.5 F 79 20 113/61 96 02/18/17 15:40 02/18/17 15:40 02/18/17 15:40 02/18/17 15:40 02/18/17 15:40 Intake and Output: 02/18/17 02/18/17 06:59 18:59 Intake Total 940 500 Output Total 600 Balance 340 500 - Medications Medications: Current Medications Acetaminophen (Tylenol 325mg Tab) 650 mg PO Q6H PRN PRN Reason: Fever >100.4 F Last Admin: 02/17/17 12:17 Dose: 650 mg Calcium/Vitamin D (Oscal-D 250 Mg-125 Units Tab) 1 tab PO DAILY [facility] Last Admin: 02/18/17 11:09 Dose: 1 tab Cefepime HCl (Maxipime Iv 2 Gm Premix) 2 gm in 100 mls @ 200 mls/hr IVPB Q12H [facility] Stop: 02/20/17 21:01 Last Admin: 02/18/17 08:20 Dose: 200 mls/hr Moxifloxacin HCl (Avelox Iv 400mg/250ml Ns) 400 mg in 250 mls @ 167 mls/hr IVPB Q24H [facility] Last Admin: 02/17/17 21:22 Dose: 167 mls/hr Insulin Human Regular (Novolin R) 0 unit SC ACHS [facility] PRN Reason: Protocol Last Admin: 02/18/17 17:26 Dose: 2 unit Metformin HCl (Glucophage) 1,000 mg PO BID [facility] Last Admin: 02/18/17 17:24 Dose: 1,000 mg Ondansetron HCl (Zofran Tab) 4 mg PO ACBD [facility] Last Admin: 02/18/17 17:26 Dose: 4 mg Potassium Chloride (K-Dur 20 Meq Er Tab) 20 meq PO DAILY [facility] Last Admin: 02/18/17 11:09 Dose: 20 meq Potassium Chloride (Potassium Chloride Oral Soln) 20 meq PO PCS [facility] - Labs Labs: 02/18/17 12:40 02/18/17 12:40 PT 12.9 SECONDS (9.7-12.2) H 02/14/17 09:44 INR 1.1 02/14/17 09:44 APTT 44 SECONDS (21-34) H 02/14/17 09:44 - Constitutional Appears: Non-toxic - Head Exam Head Exam: NORMAL INSPECTION - Eye Exam Eye Exam: Normal appearance Pupil Exam: NORMAL ACCOMODATION - ENT Exam ENT Exam: Mucous Membranes Moist - Neck Exam Neck Exam: Full ROM - Respiratory Exam Respiratory Exam: NORMAL BREATHING PATTERN - Cardiovascular Exam Cardiovascular Exam: REGULAR RHYTHM - GI/Abdominal Exam GI & Abdominal Exam: Normal Bowel Sounds - Rectal Exam Rectal Exam: NORMAL INSPECTION - Back Exam Back Exam: NORMAL INSPECTION - Neurological Exam Neurological Exam: Altered, Normal Gait, Oriented x3 - Psychiatric Exam Psychiatric exam: Normal Affect - Skin Skin Exam: Normal Color Assessment and Plan - Assessment and Plan (Free Text) Assessment: pnumonia hypokaleamia aneamia uti Plan: as per orders
[2017-02-18] MEDS: Moxifloxacin IV 400mg/250ml NS 400 MG/250 ML BAG IVPB SCH (21:49)
[2017-02-19] MEDS: (Novolin R) Insulin Human Regular 100 units/ml vial SC SCH (08:23)
[2017-02-19 08:30] LABS: MEAN CELL VOLUME 91.5 fL (80.0-94.0); MEAN CORPUSCULAR HEMOGLOBIN 30.6 pg (27.0-31.0); MEAN CORPUSCULAR HGB CONC 33.4 g/dL (33.0-37.0); RED CELL DISTRIBUTION WIDTH 13.6 % (11.5-14.5); WHITE BLOOD COUNT 9.2 K/uL (4.8-10.8)
[2017-02-19 08:40] LABS: CHLORIDE 95 mmol/L (98-107); POTASSIUM 3.5 mmol/L (3.6-5.2); SODIUM 133 mmol/L (132-148)
[2017-02-19 08:43] LABS: BLOOD UREA NITROGEN 11 mg/dL (9-20); CARBON DIOXIDE 30 mmol/L (22-30); GFR AFRICAN-AMERICAN > 60
[2017-02-19 08:44] LABS: CALCIUM 7.7 mg/dl (8.6-10.4); GLUCOSE,RANDOM 160 mg/dL (75-110)
[2017-02-19] MEDS: Cefepime IV 2 gm in Dextrose 2 GM/100 ML BAG IVPB SCH ×2 (09:27→21:20)
[2017-02-19] MEDS: Calcium-Vit D 250 mg-125 Units Tab UD PO SCH (09:27)
[2017-02-19] MEDS: Potassium Chloride 20 mEq ER Tab PO SCH (09:27)
[2017-02-19] MEDS: GlipiZIDE 2.5 mg SR Tab PO SCH ×2 (11:15→13:19)
--- NOTE | 2017-02-19 11:19 | CP.PCM.PN ---
Subjective - Date & Time of Evaluation Date of Evaluation: 02/19/17 Time of Evaluation: 11:16 - Subjective Subjective: still cough somtimes abd pain had vomiting had hyponatreamia improvred has aneamia Objective - Vital Signs/Intake and Output Vital Signs (last 24 hours): Temp Pulse Resp BP Pulse Ox 99.4 F 79 20 122/54 L 96 02/19/17 07:38 02/19/17 07:38 02/19/17 07:38 02/19/17 07:38 02/19/17 07:38 Intake and Output: 02/19/17 02/19/17 06:59 18:59 Intake Total 750 240 Balance 750 240 - Medications Medications: Current Medications Acetaminophen (Tylenol 325mg Tab) 650 mg PO Q6H PRN PRN Reason: Fever >100.4 F Last Admin: 02/17/17 12:17 Dose: 650 mg Calcium/Vitamin D (Oscal-D 250 Mg-125 Units Tab) 1 tab PO DAILY [facility] Last Admin: 02/19/17 09:27 Dose: 1 tab Glipizide (Glucotrol Xl) 2.5 mg PO DAILY [facility] Cefepime HCl (Maxipime Iv 2 Gm Premix) 2 gm in 100 mls @ 200 mls/hr IVPB Q12H [facility] Stop: 02/20/17 21:01 Last Admin: 02/19/17 09:27 Dose: 200 mls/hr Moxifloxacin HCl (Avelox Iv 400mg/250ml Ns) 400 mg in 250 mls @ 167 mls/hr IVPB Q24H [facility] Last Admin: 02/18/17 21:49 Dose: 167 mls/hr Metformin HCl (Glucophage) 1,000 mg PO BID [facility] Last Admin: 02/19/17 09:27 Dose: 1,000 mg Ondansetron HCl (Zofran Tab) 4 mg PO ACBD [facility] Last Admin: 02/19/17 08:23 Dose: 4 mg Potassium Chloride (K-Dur 20 Meq Er Tab) 20 meq PO DAILY [facility] Last Admin: 02/19/17 09:27 Dose: 20 meq Potassium Chloride (Potassium Chloride Oral Soln) 20 meq PO PCS [facility] - Labs Labs: 02/19/17 08:18 02/19/17 08:18 PT 12.9 SECONDS (9.7-12.2) H 02/14/17 09:44 INR 1.1 02/14/17 09:44 APTT 44 SECONDS (21-34) H 02/14/17 09:44 - Constitutional Appears: Non-toxic - Head Exam Head Exam: NORMAL INSPECTION - Eye Exam Eye Exam: Normal appearance Pupil Exam: NORMAL ACCOMODATION - ENT Exam ENT Exam: Mucous Membranes Moist - Neck Exam Neck Exam: Full ROM - Respiratory Exam Respiratory Exam: NORMAL BREATHING PATTERN - Cardiovascular Exam Cardiovascular Exam: REGULAR RHYTHM - GI/Abdominal Exam GI & Abdominal Exam: Normal Bowel Sounds - Rectal Exam Rectal Exam: NORMAL INSPECTION - Back Exam Back Exam: vertebral tenderness - Neurological Exam Neurological Exam: Awake - Psychiatric Exam Psychiatric exam: Normal Affect - Skin Skin Exam: Normal Color, Pallor Assessment and Plan - Assessment and Plan (Free Text) Assessment: aneamia cough pnumonia Plan: as per orders
--- NOTE | 2017-02-19 11:53 | RAD ---
HISTORY: Pneumonia COMPARISON: 02/16/2017 TECHNIQUE: Chest PA and lateral FINDINGS: LUNGS: Persistent near complete opacification of the right upper to mid lung zone concerning for prominent right upper lobe pneumonia. Post treatment interval followup would be helpful to ensure resolution. PLEURA: No significant pleural effusion identified. No pneumothorax apparent. CARDIOVASCULAR: Normal. OSSEOUS STRUCTURES: Degenerative changes in the spine. VISUALIZED UPPER ABDOMEN: Normal. OTHER FINDINGS: None. IMPRESSION: Persistent near complete opacification of the right upper to mid lung zone concerning for prominent right upper lobe pneumonia. Post treatment interval followup would be helpful to ensure resolution.
--- NOTE | 2017-02-19 15:18 | CP.PCM.PN ---
Subjective - Date & Time of Evaluation Date of Evaluation: 02/19/17 Time of Evaluation: 15:16 - Subjective Subjective: Pt seen and examined No events overnight Improved cough and dyspnea Objective - Vital Signs/Intake and Output Vital Signs (last 24 hours): Temp Pulse Resp BP Pulse Ox 99.4 F 79 20 122/54 L 96 02/19/17 07:38 02/19/17 07:38 02/19/17 07:38 02/19/17 07:38 02/19/17 07:38 Intake and Output: 02/19/17 02/19/17 06:59 18:59 Intake Total 750 890 Balance 750 890 - Medications Medications: Current Medications Acetaminophen (Tylenol 325mg Tab) 650 mg PO Q6H PRN PRN Reason: Fever >100.4 F Last Admin: 02/17/17 12:17 Dose: 650 mg Calcium/Vitamin D (Oscal-D 250 Mg-125 Units Tab) 1 tab PO DAILY [facility] Last Admin: 02/19/17 09:27 Dose: 1 tab Glipizide (Glucotrol Xl) 2.5 mg PO DAILY [facility] Last Admin: 02/19/17 13:19 Dose: 2.5 mg Cefepime HCl (Maxipime Iv 2 Gm Premix) 2 gm in 100 mls @ 200 mls/hr IVPB Q12H [facility] Stop: 02/20/17 21:01 Last Admin: 02/19/17 09:27 Dose: 200 mls/hr Moxifloxacin HCl (Avelox Iv 400mg/250ml Ns) 400 mg in 250 mls @ 167 mls/hr IVPB Q24H [facility] Last Admin: 02/18/17 21:49 Dose: 167 mls/hr Metformin HCl (Glucophage) 1,000 mg PO BID [facility] Last Admin: 02/19/17 09:27 Dose: 1,000 mg Ondansetron HCl (Zofran Tab) 4 mg PO ACBD [facility] Last Admin: 02/19/17 08:23 Dose: 4 mg Potassium Chloride (K-Dur 20 Meq Er Tab) 20 meq PO DAILY [facility] Last Admin: 02/19/17 09:27 Dose: 20 meq Potassium Chloride (Potassium Chloride Oral Soln) 20 meq PO PCS [facility] - Labs Labs: 02/19/17 08:18 02/19/17 08:18 PT 12.9 SECONDS (9.7-12.2) H 02/14/17 09:44 INR 1.1 02/14/17 09:44 APTT 44 SECONDS (21-34) H 02/14/17 09:44 - Head Exam Head Exam: NORMAL INSPECTION - Eye Exam Eye Exam: Normal appearance - ENT Exam ENT Exam: Mucous Membranes Moist - Respiratory Exam Respiratory Exam: Rhonchi, NORMAL BREATHING PATTERN - Cardiovascular Exam Cardiovascular Exam: REGULAR RHYTHM, +S1, +S2 - GI/Abdominal Exam GI & Abdominal Exam: Soft, Normal Bowel Sounds - Extremities Exam Extremities Exam: Normal Inspection - Neurological Exam Neurological Exam: Alert, Oriented x3 Assessment and Plan - Assessment and Plan (Free Text) Assessment: Pneumonia Dyspnea Continue Abx Bronchodilators Oxygen supplementation chest PT
[2017-02-19 15:29] LABS: RBC URINE 1 /hpf (0-3); URINE BILIRUBIN NEGATIVE (NEGATIVE); URINE BLOOD NEGATIVE (NEGATIVE); URINE COLOR Yellow (YELLOW); URINE GLUCOSE (UA) 3+ mg/dL (Normal); URINE KETONE NEGATIVE (NEGATIVE); URINE LEUKOCYTE ESTERASE NEG Leu/uL (Negative); URINE PROTEIN NEGATIVE (NEGATIVE); URINE UROBILINOGEN NORMAL mg/dL (0.2-1.0); WBC URINE 2 /hpf (0-5)
[2017-02-19] MEDS: Potassium Chloride 20 mEq/15 ml LIQ UD PO SCH (16:42)
[2017-02-19] MEDS ORDERED: Potassium Chloride 20 mEq ER Tab PO ONE (18:00)
[2017-02-19] MEDS ORDERED: Iohexol 350mg/ml 100 ML ONE (19:14)
--- NOTE | 2017-02-19 20:32 | CT ---
EXAM: CT Abdomen and Pelvis With Intravenous Contrast CLINICAL HISTORY: 72 years old, male; Condition or disease; Intestinal condition; Other: Anemia; Additional info: Abd pain aneamia vomiting R/O gi leasion TECHNIQUE: Axial computed tomography images of the abdomen and pelvis with intravenous contrast. This CT exam was performed using one or more of the following dose reduction techniques: automated exposure control, adjustment of the mA and/or kV according to patient size, and/or use of iterative reconstruction technique. Coronal and sagittal reformatted images were created and reviewed. CONTRAST: 100 mL of OMNIPAQUE 350 administered intravenously. EXAM DATE/TIME: 02/19/2017 11:17 AM COMPARISON: There are no prior studies for comparison. FINDINGS: Limitations: Streak artifact degrades image quality. Motion artifact degrades image quality. Lower thorax: Heart size is normal. There are coronary calcifications. There is a moderately large right pleural effusion. There is a small left pleural effusion. There is airspace disease at the lung bases right greater than left. There is a 15.9 mm nodular opacity at the right base. There is a 16 mm pleural-based nodular opacity at the right base. There is right hilar adenopathy. ABDOMEN: Liver: There is a small granuloma in the liver Gallbladder and bile ducts: unremarkable Pancreas: Pancreas is mildly atrophic. Spleen: unremarkable Adrenals: unremarkable Kidneys and ureters: unremarkable Stomach and bowel: Stomach is incompletely distended which accentuates the gastric wall.Bowel rotation is normal. There is mild duodenal and proximal jejunal wall and fold thickening. There is moderate fluid and air throughout the small bowel. There is fecalization of the terminal ileum. Appendix is not definitely identified. There is a moderately large amount of stool in the colon. Appendix: See above. PELVIS: Bladder: unremarkable Reproductive: Prostate is mildly enlarged. Seminal vesicles are unremarkable. ABDOMEN and PELVIS: Intraperitoneal space: There is no free air or free fluid. Bones/joints: There are degenerative changes in the osseus structures. There is scoliosis. Soft tissues: unremarkable Vasculature: There are vascular calcifications. Lymph nodes: There is no pathologic adenopathy. IMPRESSION: Moderate right and small left pleural effusions with airspace disease at the lung bases right greater than left; right lower lobe nodules, infectious/inflammatory versus neoplastic; right hilar adenopathy; no acute solid visceral abnormality; ileus and possibly enteritis, no obstruction; constipation Additional findings as described above.
[2017-02-19] MEDS: Moxifloxacin IV 400mg/250ml NS 400 MG/250 ML BAG IVPB SCH (22:21)
[2017-02-20] MEDS: Cefepime IV 2 gm in Dextrose 2 GM/100 ML BAG IVPB SCH ×2 (08:26→20:56)
[2017-02-20] MEDS: Potassium Chloride 20 mEq ER Tab PO SCH (11:02)
[2017-02-20] MEDS: Calcium-Vit D 250 mg-125 Units Tab UD PO SCH (11:21)
[2017-02-20] MEDS: GlipiZIDE 2.5 mg SR Tab PO SCH (11:21)
--- NOTE | 2017-02-20 16:01 | CP.PCM.PN ---
Subjective - Date & Time of Evaluation Date of Evaluation: 02/20/17 Time of Evaluation: 07:00 - Subjective Subjective: iv rx in progress discussed with dr proctor Objective - Vital Signs/Intake and Output Vital Signs (last 24 hours): Temp Pulse Resp BP Pulse Ox 98.5 F 75 20 124/69 97 02/20/17 08:00 02/20/17 08:00 02/20/17 08:00 02/20/17 08:00 02/20/17 08:00 Intake and Output: 02/20/17 02/20/17 06:59 18:59 Intake Total 550 300 Output Total 600 1200 Balance -50 -900 - Medications Medications: Current Medications Acetaminophen (Tylenol 325mg Tab) 650 mg PO Q6H PRN PRN Reason: Fever >100.4 F Last Admin: 02/17/17 12:17 Dose: 650 mg Calcium/Vitamin D (Oscal-D 250 Mg-125 Units Tab) 1 tab PO DAILY [facility] Last Admin: 02/20/17 11:21 Dose: 1 tab Glipizide (Glucotrol Xl) 2.5 mg PO DAILY [facility] Last Admin: 02/20/17 11:21 Dose: 2.5 mg Cefepime HCl (Maxipime Iv 2 Gm Premix) 2 gm in 100 mls @ 200 mls/hr IVPB Q12H [facility] Stop: 02/20/17 21:01 Last Admin: 02/20/17 08:26 Dose: 200 mls/hr Moxifloxacin HCl (Avelox Iv 400mg/250ml Ns) 400 mg in 250 mls @ 167 mls/hr IVPB Q24H [facility] Last Admin: 02/19/17 22:21 Dose: 167 mls/hr Metformin HCl (Glucophage) 1,000 mg PO BID [facility] Last Admin: 02/20/17 11:02 Dose: 1,000 mg Ondansetron HCl (Zofran Tab) 4 mg PO ACBD [facility] Last Admin: 02/20/17 08:26 Dose: 4 mg Potassium Chloride (K-Dur 20 Meq Er Tab) 20 meq PO DAILY [facility] Last Admin: 02/20/17 11:02 Dose: 20 meq Potassium Chloride (Potassium Chloride Oral Soln) 20 meq PO PCS [facility] Last Admin: 02/19/17 16:42 Dose: 20 meq - Labs Labs: 02/19/17 08:18 02/19/17 08:18 PT 12.9 SECONDS (9.7-12.2) H 02/14/17 09:44 INR 1.1 02/14/17 09:44 APTT 44 SECONDS (21-34) H 02/14/17 09:44 - Constitutional Appears: Non-toxic, Cachectic, Chronically Ill - Head Exam Head Exam: NORMOCEPHALIC - Eye Exam Eye Exam: PERRL. absent: Scleral icterus - ENT Exam ENT Exam: Mucous Membranes Dry, Normal External Ear Exam - Neck Exam Neck Exam: absent: Lymphadenopathy - Respiratory Exam Respiratory Exam: Decreased Breath Sounds, Rhonchi - Cardiovascular Exam Cardiovascular Exam: REGULAR RHYTHM - GI/Abdominal Exam GI & Abdominal Exam: Distended, Soft. absent: Tenderness Assessment and Plan (1) Diabetes mellitus Status: Acute (2) Pneumonia Status: Acute
[2017-02-20] MEDS: Potassium Chloride 20 mEq/15 ml LIQ UD PO SCH (17:45)
--- NOTE | 2017-02-20 20:10 | CP.PCM.PN ---
Subjective - Date & Time of Evaluation Date of Evaluation: 02/20/17 Time of Evaluation: 05:30 - Subjective Subjective: Pt seen and examined No events overnight Objective - Vital Signs/Intake and Output Vital Signs (last 24 hours): Temp Pulse Resp BP Pulse Ox 98.2 F 70 20 130/68 98 02/20/17 16:00 02/20/17 16:00 02/20/17 16:00 02/20/17 16:00 02/20/17 16:00 Intake and Output: 02/20/17 02/21/17 18:59 06:59 Intake Total 300 Output Total 1200 Balance -900 - Medications Medications: Current Medications Acetaminophen (Tylenol 325mg Tab) 650 mg PO Q6H PRN PRN Reason: Fever >100.4 F Last Admin: 02/17/17 12:17 Dose: 650 mg Calcium/Vitamin D (Oscal-D 250 Mg-125 Units Tab) 1 tab PO DAILY [facility] Last Admin: 02/20/17 11:21 Dose: 1 tab Glipizide (Glucotrol Xl) 2.5 mg PO DAILY [facility] Last Admin: 02/20/17 11:21 Dose: 2.5 mg Cefepime HCl (Maxipime Iv 2 Gm Premix) 2 gm in 100 mls @ 200 mls/hr IVPB Q12H [facility] Stop: 02/20/17 21:01 Last Admin: 02/20/17 08:26 Dose: 200 mls/hr Moxifloxacin HCl (Avelox Iv 400mg/250ml Ns) 400 mg in 250 mls @ 167 mls/hr IVPB Q24H [facility] Last Admin: 02/19/17 22:21 Dose: 167 mls/hr Metformin HCl (Glucophage) 1,000 mg PO BID [facility] Last Admin: 02/20/17 17:40 Dose: 1,000 mg Ondansetron HCl (Zofran Tab) 4 mg PO ACBD [facility] Last Admin: 02/20/17 17:41 Dose: 4 mg Potassium Chloride (K-Dur 20 Meq Er Tab) 20 meq PO DAILY [facility] Last Admin: 02/20/17 11:02 Dose: 20 meq Potassium Chloride (Potassium Chloride Oral Soln) 20 meq PO PCS [facility] Last Admin: 02/20/17 17:45 Dose: 20 meq - Labs Labs: 02/19/17 08:18 02/19/17 08:18 PT 12.9 SECONDS (9.7-12.2) H 02/14/17 09:44 INR 1.1 02/14/17 09:44 APTT 44 SECONDS (21-34) H 02/14/17 09:44 - Head Exam Head Exam: ATRAUMATIC, NORMAL INSPECTION, NORMOCEPHALIC - Eye Exam Eye Exam: Normal appearance - ENT Exam ENT Exam: Mucous Membranes Moist - Respiratory Exam Respiratory Exam: Clear to Ausculation Bilateral - Cardiovascular Exam Cardiovascular Exam: REGULAR RHYTHM, +S1, +S2 - GI/Abdominal Exam GI & Abdominal Exam: Soft, Normal Bowel Sounds - Extremities Exam Extremities Exam: Normal Inspection Assessment and Plan - Assessment and Plan (Free Text) Assessment: Pneumonia Dyspnea Continue Cefepeme and moxifloxacin Bronchodilators Oxygen supplementation chest PT
[2017-02-20] MEDS: Moxifloxacin IV 400mg/250ml NS 400 MG/250 ML BAG IVPB SCH (20:51)
[2017-02-21] MEDS: Potassium Chloride 20 mEq ER Tab PO SCH (11:37)
[2017-02-21] MEDS: Calcium-Vit D 250 mg-125 Units Tab UD PO SCH (11:37)
[2017-02-21] MEDS: GlipiZIDE 2.5 mg SR Tab PO SCH (11:37)
--- NOTE | 2017-02-21 17:41 | CP.PCM.PN ---
Subjective - Date & Time of Evaluation Date of Evaluation: 02/21/17 Time of Evaluation: 17:41 Objective - Vital Signs/Intake and Output Vital Signs (last 24 hours): Temp Pulse Resp BP Pulse Ox 98.6 F 78 20 118/64 96 02/21/17 07:44 02/21/17 07:44 02/21/17 07:44 02/21/17 07:44 02/21/17 07:44 Intake and Output: 02/21/17 02/21/17 06:59 18:59 Intake Total 350 180 Balance 350 180 - Medications Medications: Current Medications Acetaminophen (Tylenol 325mg Tab) 650 mg PO Q6H PRN PRN Reason: Fever >100.4 F Last Admin: 02/17/17 12:17 Dose: 650 mg Calcium/Vitamin D (Oscal-D 250 Mg-125 Units Tab) 1 tab PO DAILY [facility] Last Admin: 02/21/17 11:37 Dose: 1 tab Glipizide (Glucotrol Xl) 2.5 mg PO DAILY [facility] Last Admin: 02/21/17 11:37 Dose: 2.5 mg Moxifloxacin HCl (Avelox Iv 400mg/250ml Ns) 400 mg in 250 mls @ 167 mls/hr IVPB Q24H [facility] Last Admin: 02/20/17 20:51 Dose: 167 mls/hr Metformin HCl (Glucophage) 1,000 mg PO BID [facility] Last Admin: 02/21/17 11:37 Dose: 1,000 mg Ondansetron HCl (Zofran Tab) 4 mg PO ACBD [facility] Last Admin: 02/21/17 06:46 Dose: 4 mg Potassium Chloride (K-Dur 20 Meq Er Tab) 20 meq PO DAILY [facility] Last Admin: 02/21/17 11:37 Dose: 20 meq Potassium Chloride (Potassium Chloride Oral Soln) 20 meq PO PCS [facility] Last Admin: 02/20/17 17:45 Dose: 20 meq - Labs Labs: 02/19/17 08:18 02/19/17 08:18 PT 12.9 SECONDS (9.7-12.2) H 02/14/17 09:44 INR 1.1 02/14/17 09:44 APTT 44 SECONDS (21-34) H 02/14/17 09:44
[2017-02-21] MEDS: Potassium Chloride 20 mEq/15 ml LIQ UD PO SCH (18:12)
--- NOTE | 2017-02-21 18:18 | CP.PCM.PN ---
Subjective - Date & Time of Evaluation Date of Evaluation: 02/21/17 Time of Evaluation: 09:00 - Subjective Subjective: remains afebrile may need bronchoscopy Objective - Vital Signs/Intake and Output Vital Signs (last 24 hours): Temp Pulse Resp BP Pulse Ox 98.6 F 78 20 118/64 96 02/21/17 07:44 02/21/17 07:44 02/21/17 07:44 02/21/17 07:44 02/21/17 07:44 Intake and Output: 02/21/17 02/21/17 06:59 18:59 Intake Total 350 180 Balance 350 180 - Medications Medications: Current Medications Acetaminophen (Tylenol 325mg Tab) 650 mg PO Q6H PRN PRN Reason: Fever >100.4 F Last Admin: 02/17/17 12:17 Dose: 650 mg Calcium/Vitamin D (Oscal-D 250 Mg-125 Units Tab) 1 tab PO DAILY [facility] Last Admin: 02/21/17 11:37 Dose: 1 tab Glipizide (Glucotrol Xl) 2.5 mg PO DAILY [facility] Last Admin: 02/21/17 11:37 Dose: 2.5 mg Moxifloxacin HCl (Avelox Iv 400mg/250ml Ns) 400 mg in 250 mls @ 167 mls/hr IVPB Q24H [facility] Last Admin: 02/20/17 20:51 Dose: 167 mls/hr Cefepime HCl (Maxipime Iv 1 Gm Premix) 1 gm in 50 mls @ 100 mls/hr IVPB Q12H [facility] Metformin HCl (Glucophage) 1,000 mg PO BID [facility] Last Admin: 02/21/17 18:03 Dose: 1,000 mg Ondansetron HCl (Zofran Tab) 4 mg PO ACBD [facility] Last Admin: 02/21/17 18:04 Dose: 4 mg Potassium Chloride (K-Dur 20 Meq Er Tab) 20 meq PO DAILY [facility] Last Admin: 02/21/17 11:37 Dose: 20 meq Potassium Chloride (Potassium Chloride Oral Soln) 20 meq PO PCS [facility] Last Admin: 02/21/17 18:12 Dose: 20 meq - Labs Labs: 02/19/17 08:18 02/19/17 08:18 PT 12.9 SECONDS (9.7-12.2) H 02/14/17 09:44 INR 1.1 02/14/17 09:44 APTT 44 SECONDS (21-34) H 02/14/17 09:44 - Constitutional Appears: Non-toxic, Chronically Ill - Head Exam Head Exam: NORMOCEPHALIC - Eye Exam Eye Exam: PERRL. absent: Scleral icterus - ENT Exam ENT Exam: Mucous Membranes Dry - Neck Exam Neck Exam: absent: Lymphadenopathy - Respiratory Exam Respiratory Exam: Decreased Breath Sounds, Clear to Ausculation Bilateral - Cardiovascular Exam Cardiovascular Exam: REGULAR RHYTHM, +S1, +S2 - GI/Abdominal Exam GI & Abdominal Exam: Distended, Soft - Rectal Exam Rectal Exam: Deferred - Exam Exam: NORMAL INSPECTION - Extremities Exam Extremities Exam: absent: Calf Tenderness, Pedal Edema - Back Exam Back Exam: absent: CVA tenderness (L), CVA tenderness (R) - Neurological Exam Neurological Exam: Alert, Awake, Oriented x3 - Psychiatric Exam Psychiatric exam: Normal Mood - Skin Skin Exam: Dry Assessment and Plan (1) Diabetes mellitus Status: Acute (2) Pneumonia Status: Acute
[2017-02-21] MEDS: Moxifloxacin IV 400mg/250ml NS 400 MG/250 ML BAG IVPB SCH (22:20)
[2017-02-21] MEDS: Cefepime IV 1 gm in Dextrose 1 GM/50 ML BAG IVPB SCH (22:20)
[2017-02-22] MEDS: Cefepime IV 1 gm in Dextrose 1 GM/50 ML BAG IVPB SCH (06:24)
[2017-02-22] MEDS: Potassium Chloride 20 mEq ER Tab PO SCH (10:25)
[2017-02-22] MEDS: Calcium-Vit D 250 mg-125 Units Tab UD PO SCH (10:26)
[2017-02-22] MEDS: GlipiZIDE 2.5 mg SR Tab PO SCH (10:26)
[2017-02-22 13:54] LABS: BASO # 0.1 K/uL (0.0-0.2); BASO % 0.7 % (0.0-2.0); EOS # 0.1 K/uL (0.0-0.7); EOS % 1.4 % (0.0-4.0); LYMPH % 13.1 % (20.0-40.0); MEAN CELL VOLUME 93.3 fL (80.0-94.0); MEAN CORPUSCULAR HEMOGLOBIN 31.3 pg (27.0-31.0); MEAN CORPUSCULAR HGB CONC 33.5 g/dL (33.0-37.0); MEAN PLATELET VOLUME 8.2 fL (7.2-11.7); MONO # 0.5 K/uL (0.0-0.8); MONO % 6.7 % (0.0-10.0); NRBC % 0.1 % (0.0-2.0); RED CELL DISTRIBUTION WIDTH 13.8 % (11.5-14.5); WHITE BLOOD COUNT 7.4 K/uL (4.8-10.8)
[2017-02-22 14:25] LABS: POTASSIUM 4.3 mmol/L (3.6-5.2); SODIUM 134 mmol/L (132-148)
[2017-02-22 14:27] LABS: GFR AFRICAN-AMERICAN > 60
[2017-02-22 14:28] LABS: BLOOD UREA NITROGEN 12 mg/dL (9-20); CALCIUM 8.4 mg/dl (8.6-10.4); CARBON DIOXIDE 30 mmol/L (22-30); GLUCOSE,RANDOM 204 mg/dL (75-110)
[2017-02-22 15:20] LABS: CHLORIDE 93 mmol/L (98-107)
[2017-02-22 16:48] VITALS: BP 112/69; PULSE 76; TEMP 98.5; O2SAT 96
[2017-02-22] MEDS: Potassium Chloride 20 mEq/15 ml LIQ UD PO SCH (17:15)
--- NOTE | 2017-02-22 17:20 | CP.PCM.PN ---
Subjective - Date & Time of Evaluation Date of Evaluation: 02/22/17 Time of Evaluation: 11:00 - Subjective Subjective: Alert, awake, no cough, sob or chest pains, NAD. Objective - Vital Signs/Intake and Output Vital Signs (last 24 hours): Temp Pulse Resp BP Pulse Ox 98.5 F 76 20 112/69 96 02/22/17 15:00 02/22/17 15:00 02/22/17 15:00 02/22/17 15:00 02/22/17 15:00 Intake and Output: 02/22/17 02/22/17 06:59 18:59 Intake Total 650 1240 Output Total 900 Balance 650 340 - Medications Medications: Current Medications Acetaminophen (Tylenol 325mg Tab) 650 mg PO Q6H PRN PRN Reason: Fever >100.4 F Last Admin: 02/17/17 12:17 Dose: 650 mg Calcium/Vitamin D (Oscal-D 250 Mg-125 Units Tab) 1 tab PO DAILY [facility] Last Admin: 02/22/17 10:26 Dose: 1 tab Glipizide (Glucotrol Xl) 2.5 mg PO DAILY [facility] Last Admin: 02/22/17 10:26 Dose: 2.5 mg Moxifloxacin HCl (Avelox Iv 400mg/250ml Ns) 400 mg in 250 mls @ 167 mls/hr IVPB Q24H [facility] Last Admin: 02/21/17 22:20 Dose: 167 mls/hr Cefepime HCl (Maxipime Iv 1 Gm Premix) 1 gm in 50 mls @ 100 mls/hr IVPB Q12H [facility] Last Admin: 02/22/17 06:24 Dose: 100 mls/hr Metformin HCl (Glucophage) 1,000 mg PO BID [facility] Last Admin: 02/22/17 17:12 Dose: 1,000 mg Ondansetron HCl (Zofran Tab) 4 mg PO ACBD [facility] Last Admin: 02/22/17 17:14 Dose: 4 mg Potassium Chloride (K-Dur 20 Meq Er Tab) 20 meq PO DAILY [facility] Last Admin: 02/22/17 10:25 Dose: 20 meq Potassium Chloride (Potassium Chloride Oral Soln) 20 meq PO PCS [facility] Last Admin: 02/22/17 17:15 Dose: 20 meq - Labs Labs: 02/22/17 13:45 02/22/17 13:45 PT 12.9 SECONDS (9.7-12.2) H 02/14/17 09:44 INR 1.1 02/14/17 09:44 APTT 44 SECONDS (21-34) H 02/14/17 09:44 Assessment and Plan - Assessment and Plan (Free Text) Assessment: Patient is seen and examined. Admitted for pneumonia, improved with cough, no fever, no sob or chest pains. D/W DR Siegel, and DR Fernandes and DR Mott, plan to discharge home today on levaquin for 7 days and follow up in 1 week.
--- NOTE | 2017-03-05 14:35 | DS ---
He came in. He is a 72-year-old who came into the Emergency Room complaining of fatigue, fever and c hills and cough for 4 days. His temperature was 102. His pulse was regular. His blood pressure was kind of low, 107/60, and his oxygen was okay. His blood test, he has a little bit of diabetes, 173. His white count at the beginning was okay. The patient was seen by Dr. Mott and he was started o n antibiotic for possibility of pneumonia. He had a CAT scan of the chest which showed coronary tori ry calcification, mediastinal adenopathy measuring about 12 mm and he has right upper lobe patchy con solidation, compatible with pneumonia and prominent vasculature and medistinal adenopathy ____. The patient was started on antibiotics and the nebulizer treatment and Tylenol for his fever and he was g etting better with time. He was also seen by ____ in consultation, Dr. Siegel, for his pneumonia and his short of breath. He was on calcium, vitamin D, glipizide for his diabetes, moxifloxacin and acetaminophen and he ____ of the same treatment and the patient got some physical therapy to ambulate and he improved and he was able to be discharged home on the same medication. FINAL DIAGNOSES: Acute pneumonia, improved and diabetes mellitus, controlled and he will follow up b y his physician. Cyndi Fernandes MD cc: [id number] TT: 03/05/2017 14:34:38 sn
== END 2017-02-22 18:30 | disposition home or self-care (01) | DRG 194 ==
LOC: C.ER 08:15 → C.9E 10:34 → C.3T 11:12
PROVIDERS: ADMIT Internal Medicine; ATTEND Internal Medicine
DX: J18.9 Pneumonia, unspecified organism (principal); N39.0 Urinary tract infection, site not specified; E11.9 Type 2 diabetes mellitus without complications; E87.1 Hypo-osmolality and hyponatremia; E83.51 Hypocalcemia; D64.9 Anemia, unspecified; Z87.891 Personal history of nicotine dependence; Z79.4 Long term (current) use of insulin; K59.00 Constipation, unspecified; E87.6 Hypokalemia

== ENCOUNTER 2018-11-24 18:21 | Emergency (ER) | payer MEDICARE, OTHER ==
[2018-11-24 18:21] VITALS: BMI 27.9
[2018-11-24] MEDS ORDERED: Sodium Chloride 0.9% 1,000 ML IV ONE (19:43)
--- NOTE | 2018-11-24 19:43 | C.PDOC ---
History Of Present Illness Patient presents to the ER with a complaint of abdominal pain, nausea, vomiting, and some diarrhea worsening over the past week. Denies fever, chills, or decreased PO intake. Time Seen by Provider: 11/24/18 19:42 Chief Complaint (Nursing): Abdominal Pain History Per: Patient History/Exam Limitations: no limitations Onset/Duration Of Symptoms: Days (week) Current Symptoms Are (Timing): Still Present Severity: Moderate Pain Scale Rating Of: 4 Location Of Pain/Discomfort: Diffuse Radiation Of Pain To:: None Quality Of Discomfort: Unable To Describe Associated Symptoms: Nausea, Vomiting, Diarrhea. denies: Fever, Chills, Loss Of Appetite Exacerbating Factors: None Alleviating Factors: None Recent travel outside of the [place]: No Past Medical History Reviewed: Historical Data, Nursing Documentation, Vital Signs Vital Signs: Last Vital Signs Temp 98.7 F 11/24/18 19:13 Pulse 62 11/24/18 19:13 Resp 20 11/24/18 19:13 BP 147/63 11/24/18 19:13 Pulse Ox 99 11/24/18 19:13 - Medical History PMH: Fractures (RIGHT ANKLE WITH FIXATION) Family History: States: No Known Family Hx - Social History Hx Alcohol Use: No (Former) Hx Substance Use: No (Denied) - Immunization History Hx Tetanus Toxoid Vaccination: No Hx Influenza Vaccination: No Hx Pneumococcal Vaccination: No Review Of Systems Constitutional: Negative for: Fever, Chills, Other (Decreased PO intake) Cardiovascular: Negative for: Chest Pain, Palpitations Respiratory: Negative for: Cough, Shortness of Breath Gastrointestinal: Positive for: Nausea, Vomiting, Abdominal Pain, Diarrhea Neurological: Negative for: Weakness, Numbness Physical Exam - Physical Exam Appears: Non-toxic Skin: Warm, Dry Head: Normacephalic Oral Mucosa: Dry Neck: Trachea Midline, Supple Chest: Symmetrical, No Tenderness Cardiovascular: Rhythm Regular Respiratory: No Rales, No Rhonchi, No Wheezing Gastrointestinal/Abdominal: Soft, Tenderness (Diffusely), No Guarding, No Rebound Back: No CVA Tenderness Neurological/Psych: Oriented x3 ED Course And Treatment - Laboratory Results Result Diagrams: 11/24/18 20:25 11/24/18 20:25 O2 Sat by Pulse Oximetry: 99 (Room air) Pulse Ox Interpretation: Normal Progress Note: EKG, blood work, and urinalysis ordered. Protonix, zofran, and IV fluids administered. 12:17 AM Tolerating po Reevaluation Time: 00:17 Reassessment Condition: Improved Disposition Counseled Patient/Family Regarding: Studies Performed, Diagnosis, Need For Followup - Disposition Referrals: Be Foss MD [Medical Doctor] - Disposition: HOME/ ROUTINE Disposition Time: 19:43 Condition: FAIR Additional Instructions: Regrese si los sntomas recurren. Liza un seguimiento con vázquez mdico sobre los hallazgos de la TC, especialmente el engrosamiento de la pared del recto proximal Prescriptions: Ondansetron ODT [Zofran ODT] 1 odt PO BID PRN #10 odt PRN Reason: Nausea/Vomiting Pantoprazole Sodium [Protonix] 40 mg PO DAILY #14 ect Instructions: Acute Abdomen (Belly Pain), Adult (DC), Nausea and Vomiting, Adult (DC) Forms: Diana (Kinyarwanda) Print Language: PORTUGUESE - Clinical Impression Clinical Impression: Abdominal pain, Nausea, Vomiting, Diarrhea - Scribe Statement The provider has reviewed the documentation as recorded by the Scribe Fabian Hanna All medical record entries made by the Scribe were at my direction and personally dictated by me. I have reviewed the chart and agree that the record accurately reflects my personal performance of the history, physical exam, medical decision making, and the department course for this patient. I have also personally directed, reviewed, and agree with the discharge instructions and disposition.
[2018-11-24] MEDS ORDERED: Sodium Chloride 0.9% 1,000 ML ONE (20:26)
[2018-11-24 20:31] LABS: BASO % 0.6 % (0.0-2.0); EOS # 0.2 K/uL (0.0-0.7); EOS % 2.8 % (0.0-4.0); HEMOGLOBIN 12.5 g/dL (12.0-18.0); LYMPH # 2.2 K/uL (1.0-4.3); LYMPH % 31.2 % (20.0-40.0); MEAN CELL VOLUME 95.4 fL (80.0-94.0); MEAN CORPUSCULAR HEMOGLOBIN 31.7 pg (27.0-31.0); MEAN CORPUSCULAR HGB CONC 33.2 g/dL (33.0-37.0); MONO # 0.6 K/uL (0.0-0.8); MONO % 8.3 % (0.0-10.0); NEUT % 57.1 % (50.0-75.0); RBC 3.96 Mil/uL (4.40-5.90); RED CELL DISTRIBUTION WIDTH 13.8 % (11.5-14.5)
[2018-11-24 20:38] LABS: INR 1.2; PROTHROMBIN TIME 12.9 SECONDS (9.7-12.2)
[2018-11-24 20:42] LABS: ALB/GLOB RATIO 1.5 (1.0-2.1); ALBUMIN 4.5 g/dL (3.5-5.0); ALT/SGPT 24 U/L (21-72); AST/SGOT 33 U/L (17-59); BLOOD UREA NITROGEN 11 mg/dL (9-20); CALCIUM 9.3 mg/dl (8.6-10.4); GFR NON-AFRICAN AMERICAN > 60; LIPASE 61 U/L (23-300)
[2018-11-24 22:03] LABS: SQUAMOUS EPITHIAL < 1 /hpf (0-5); URINE BACTERIA RARE (<OCC); URINE BILIRUBIN NEGATIVE (NEGATIVE); URINE BLOOD NEGATIVE (NEGATIVE); URINE CLARITY Clear (Clear); URINE COLOR Colorless (YELLOW); URINE GLUCOSE (UA) NORMAL (Normal); URINE LEUKOCYTE ESTERASE NEG Leu/uL (Negative); URINE PROTEIN NEGATIVE (NEGATIVE); URINE UROBILINOGEN NORMAL mg/dL (0.2-1.0)
[2018-11-24] MEDS ORDERED: Iohexol 300 100 ML IJ ONE (22:32)
[2018-11-25 00:32] VITALS: BP 136/74; PULSE 79; RESP 17; TEMP 98.2; O2SAT 98
--- NOTE | 2018-11-25 13:10 | CT ---
Date of service: 11/24/2018 PROCEDURE: CT Abdomen and Pelvis with contrast HISTORY: abd pain COMPARISON: CT abdomen and pelvis with contrast performed 02/19/17 TECHNIQUE: Contrast dose: 100 mL Omnipaque 300 Radiation dose: Total exam DLP = 491.3 mGy-cm. This CT exam was performed using one or more of the following dose reduction techniques: Automated exposure control, adjustment of the mA and/or kV according to patient size, and/or use of iterative reconstruction technique. FINDINGS: LOWER THORAX: No visible consolidation, pleural effusion, or pneumothorax. LIVER: Hypoattenuation of the liver compatible with hepatic steatosis. GALLBLADDER AND BILE DUCTS: Unremarkable. PANCREAS: Too small to characterize 5 mm pancreatic tail (series 3, image 46) hypodense lesion appears fat density, possibly lipoma. Pancreatic duct does not appear dilated. SPLEEN: Unremarkable. ADRENALS: Unremarkable. KIDNEYS AND URETERS: The kidneys enhance symmetrically. No hydronephrosis or obstructing calculus identified. VASCULATURE: No aortic aneurysm. Atherosclerotic calcifications of the aorta. Indeterminate subtle low density surrounding the celiac axis and branches as on prior study. BOWEL: Stomach is nondistended. Lack of oral contrast limits evaluation for bowel pathology. Bowel loops appear within normal limits of caliber without evidence of obstruction. Diverticulosis without CT evidence of acute diverticulitis. Moderate constipation. Questionable thickening of the rectum may be exaggerated by under distension. APPENDIX: No secondary signs of acute appendicitis. PERITONEUM: No significant free fluid. No definite free air. LYMPH NODES: Prominent but nonspecific gastrohepatic lymph nodes measuring up to approximately 12 mm in short axis. BLADDER: Mildly thick-walled under distended urinary bladder. REPRODUCTIVE: Prostate gland measures approximately 3.7 x 5.2 cm and contains calcifications. BONES: Osseous demineralization. Multilevel degenerative changes. OTHER FINDINGS: None. IMPRESSION: Hypoattenuation of the liver compatible with hepatic steatosis. Indeterminate subtle low density surrounding the celiac axis and branches similar to prior study performed 02/19/17, unlikely related to an acute process. Too small to definitively characterize 5 mm pancreatic tail hypodense lesion appears fat density, possibly lipoma. Pancreatic duct does not appear dilated. Diverticulosis without CT evidence of acute diverticulitis. Moderate constipation. Question rectal wall thickening, possibly exaggerated by under distension. Correlate clinically and suggest follow-up including colonoscopy if indicated. Borderline gastrohepatic lymph nodes. Enlarged prostate gland; correlate with PSA. Additional findings as above. Preliminary impression was provided by [employer].
== END 2018-11-25 00:38 | disposition home or self-care (01) ==
LOC: C.ER 18:21
DX: R10.9 Unspecified abdominal pain (principal); R11.2 Nausea with vomiting, unspecified; R19.7 Diarrhea, unspecified
CPT/HCPCS: 74177; 80053; 81001; 83690; 85025; 85610; 85730; 96374; 96375; 99284; C9113; J2405; J7030; Q9967